=== PATIENT | male | born 1965 | race Caucasian/White ===

== ENCOUNTER 2021-11-02 12:45 | Inpatient (IN) | payer OTHER ==
[~2021-11-02] VITALS: Ht 188 cm; Wt 144.0 kg
[2021-11-02 13:05] LABS: Calcium, Ionized (POC) 1.18 mmol/L (1.10-1.46); Chloride (POC) 94 mmol/L (98-108); Creatinine (POC) 1.7 mg/dL (0.8-1.3); Glucose (ISTAT POC) 151 mg/dL (70-99); Hemoglobin (POC) 13.6 g/dL (13.5-17.5); Potassium (POC) 4.7 mmol/L (3.5-5.5); Sodium (POC) 135 mmol/L (135-148); Total CO2 (POC) 34 mmol/L (21-32)
[2021-11-02 13:15] LABS: BASOPHILS ABSOLUTE AUTO 0.07 K/mm3 (0.00-0.23); BASOPHILS PERCENT AUTO 1 % (0-2); EOSINOPHILS PERCENT AUTO 0 % (0-6); Hematocrit 43.4 % (37.0-53.0); Hemoglobin 13.3 g/dL (13.5-17.5); IMMATURE GRAN ABSOLUTE AUTO 0.12 K/mm3 (0.00-0.10); IMMATURE GRAN PERCENT AUTO 1 % (0-1); LYMPHOCYTES ABSOLUTE AUTO 2.29 K/mm3 (0.84-5.20); LYMPHOCYTES PERCENT AUTO 18 % (21-46); MONOCYTES ABSOLUTE AUTO 1.15 K/mm3 (0.16-1.47); MONOCYTES PERCENT AUTO 9 % (4-13); Mean Corpuscular HGB 26.5 pg (26.0-34.0); Mean Corpuscular HGB Conc 30.6 g/dL (31.5-36.5); Mean Corpuscular Volume 87 fL (80-100); Mean Platelet Volume 9.3 fL (9.1-12.4); NEUTROPHILS ABSOLUTE AUTO 9.35 K/mm3 (1.96-9.15); NEUTROPHILS PERCENT AUTO 72 % (41-73); Platelet Count 187 K/mm3 (150-400); RDW Coefficient Variation 14.7 % (11.7-14.2); RDW Standard Deviation 46.8 fL (35.1-46.3); Red Blood Cell Count 5.02 M/mm3 (4.30-5.90); White Blood Cell Count 12.98 K/mm3 (4.00-11.30)
[2021-11-02 13:23] LABS: Bicarbonate Venous 26.5 mmol/L (24.0-30.0); PCO2 Venous 85.1 mmHg (38-42); PO2 Venous 73.9 mmHg (38-42)
[2021-11-02 13:48] LABS: International Normalized Ratio 1.02; Prothrombin Time Results 10.7 Sec (9.7-11.5)
[2021-11-02 14:06] LABS: Source, Urine Straight Cath
[2021-11-02 14:11] LABS: Appearance, Urine Clear (Clear); Bilirubin, Urine Neg (Neg); Blood, Urine 3+ (Neg); Color, Urine Amber (P-Yellow); Glucose Qualitative, Urine Neg (Neg); Ketones, Urine Neg (Neg); Leukocyte Esterase, Urine Neg (Neg); Nitrite, Urine Neg (Neg); Protein, Urine 3+ (Neg); Specific Gravity, Urine 1.025 (1.003-1.022); Urobilinogen, Urine NORM (Normal)
[2021-11-02 14:28] LABS: Bacteria Mod /hpf; Mucus Light (0-Heavy); Squamous Epithelial Cells Few /hpf (Few)
[2021-11-02 14:29] LABS: Albumin, Blood 3.1 g/dL (3.4-5.0); Albumin/Globulin Ratio 0.6 (0.8-1.8); Bilirubin, Total 0.5 mg/dL (0.1-1.0); Bun/Creatinine Ratio 20.5 (12.0-20.0); Calcium, Blood 8.9 mg/dL (8.5-10.1); Creatinine, Blood 1.66 mg/dL (0.60-1.20); Globulin, Blood 5.6 g/dL (2.2-4.0); Potassium, Blood 4.4 mmol/L (3.5-5.5); Thyroid Stimulating Hormone 1.01 uIU/mL (0.360-4.800); Total Protein, Blood 8.7 g/dL (6.4-8.2)
[2021-11-02 14:33] LABS: U Amphetamine Screen DETECTED; U Barbituate Screen Not Detected; U Benzodiazapine Screen Not Detected; U Cannabinoids Screen DETECTED; U Cocaine Screen Not Detected; U Methadone Screen Not Detected; U Methamphetamine Screen DETECTED; U Opiates Screen Not Detected; U Phencyclidine Screen Not Detected
[2021-11-02 14:34] LABS: U Buprenorphine Screen Not Detected; U Oxycodone Screen Not Detected; U Propoxyphene Screen Not Detected
[2021-11-02 14:56] LABS: Influenza A, PCR NEGATIVE (NEGATIVE); Influenza B, PCR NEGATIVE (NEGATIVE); Resp Syncytial Virus, PCR NEGATIVE (NEGATIVE); SARS-Cov-2 (COVID-19) PCR, MMC NEGATIVE (NEGATIVE)
--- NOTE | 2021-11-02 19:00 | NUR ---
ASSUMED CARE ASSUMED CARE AT 1900. PT INTUBATED AND SEDATED. PROPOFOL GTT AT 20MCG/KG/MIN. MONITOR SHOWS SR, RATE 90S, VSS. OG CLAMPED. AMIN PATEND/DRAINING, YELLOW CLOUDY W/ SEDIMENT. R IJ CENTRAL LINE NOTED.
--- NOTE | 2021-11-02 19:42 | NUR ---
1600 ADMIT TO ICU PATIENT WAS INTUBATED AND SEDATED ON THE VENTILATOR. HE HAS 3 PIV UPON ARRIVAL WITH 10MCG OF PROPOFOL GOING INTO HIS RIGHT HAND. ANTIBIOTICS STARTED. PT HAS AN OG IN PLACE AND AMIN CATH [address] FROM ER. URINE OUTPUT ONLY 200 CC OUT FROM [id number] IN THE ICU. 3 STAFF MEMBERS SCRUBBED PT HEAD TO TOE. HE HAD MAGGOTS TO LEFT GAMBLE. HIS WOUNDS ARE EXTENSIVE ON BILAT. LE UPON ARRIVAL. HE ALSO HAS MOISTURE DAMAGE TO PANIS AND RIGHT AND LEFT GROIN. PICTURES TAKEN, SEE CHART. NO FAMILY ARRIVED OR CALLED FOR PATIENT SO STILL NO HISTORY TO NOTE OF. DR FAUST PLACED A CENTRAL LINE TO RIGHT IJ, CHEST XRAY DONE AND SHE GAVE THE OK TO USE THE LINE. LABS SENT OFF THE CENTRAL LINE AND TROPONIN I HIGH WENT UP FROM PREVIOUS DRAW HOWEVER HIS LACTIC ACID LEVEL WHEN DOWN A LITTLE. REPORT GIVEN OFF TO NEXT SHIFT TO RESUME CARE.
[2021-11-03 02:21] LABS: BASOPHILS ABSOLUTE AUTO 0.02 K/mm3 (0.00-0.23); BASOPHILS PERCENT AUTO 0 % (0-2); EOSINOPHILS ABSOLUTE AUTO 0.06 K/mm3 (0.00-0.68); EOSINOPHILS PERCENT AUTO 1 % (0-6); Hematocrit 34.9 % (37.0-53.0); Hemoglobin 11.2 g/dL (13.5-17.5); IMMATURE GRAN ABSOLUTE AUTO 0.05 K/mm3 (0.00-0.10); IMMATURE GRAN PERCENT AUTO 1 % (0-1); LYMPHOCYTES ABSOLUTE AUTO 1.73 K/mm3 (0.84-5.20); LYMPHOCYTES PERCENT AUTO 19 % (21-46); MONOCYTES PERCENT AUTO 9 % (4-13); Mean Corpuscular HGB 26.6 pg (26.0-34.0); Mean Corpuscular HGB Conc 32.1 g/dL (31.5-36.5); Mean Corpuscular Volume 83 fL (80-100); Mean Platelet Volume 9.8 fL (9.1-12.4); NEUTROPHILS ABSOLUTE AUTO 6.67 K/mm3 (1.96-9.15); NEUTROPHILS PERCENT AUTO 72 % (41-73); Platelet Count 130 K/mm3 (150-400); RDW Coefficient Variation 14.6 % (11.7-14.2); RDW Standard Deviation 43.8 fL (35.1-46.3); Red Blood Cell Count 4.21 M/mm3 (4.30-5.90); White Blood Cell Count 9.33 K/mm3 (4.00-11.30)
[2021-11-03 02:51] LABS: Albumin, Blood 2.4 g/dL (3.4-5.0); Albumin/Globulin Ratio 0.5 (0.8-1.8); Bilirubin, Total 0.6 mg/dL (0.1-1.0); Bun/Creatinine Ratio 22.8 (12.0-20.0); Calcium, Blood 7.7 mg/dL (8.5-10.1); Creatinine, Blood 1.45 mg/dL (0.60-1.20); Globulin, Blood 4.4 g/dL (2.2-4.0); Potassium, Blood 3.7 mmol/L (3.5-5.5); Total Protein, Blood 6.8 g/dL (6.4-8.2)
--- NOTE | 2021-11-03 05:56 | NUR ---
SHIFT SUMMARY NO ACUTE CHANGES DURING NOC. REMAINS INTUBATED- AC/VC 16/500/5/40%. RR 16-20s. SX'd MODERATE AMOUNTS OF WHITE SPUTUM. COPIOUS ORAL SECRETIONS AT TIMES. SEDATED WITH PROPOFOL BETWEEN 10-30MCG/KG/MIN- NOW INFUSING AT 30MCG/KG/MIN. SEDATION VACATION DONE THIS AM- PT AWAKE, FOLLOWING COMMANDS, ATTEMPTING TO TALK AND GESTURING WITH HANDS. SEDATION RESTARTED AND WEANING TRIAL STOPPED D/T INCREASED AGITATION. VSS. AFEBRILE. OG TO LIS WITH SMALL AMOUNT OF LIGHT BROWN DRAINAGE. AMIN PATENT AND DRAINING TO GRAVY WITH SEDIMENT NOTED. RIJ WITH ONLY TWO LUMENS PATENT AT THIS TIME- BROWN PORT AND BLUE PORT NOT FLUSHING. BLEs WITH PETROLEUM DRSGS AND KERLEX IN PLACE D/T PRESENCE OF MAGGOTS. WILL REPORT TO ONCOMING RN WHEN AVAILABLE.
--- NOTE | 2021-11-03 10:21 | NUR ---
AM NOTE: ASSUMED CARE OF PATIENT AT 0700. IN ROOM AT 0830 TO COMPELTE MORNING ASSESSMENT. PT IS INTUBATED AND SEDATED WITH PROPOFOL RUNNING AT 30 MCG/KG/MIN AND VENT SETTINGS AT AC/VC 16/500/40/5.0. PT HAS RHONCI NOTED IN THE DORIS, WITH COARSE SOUNDS NOTED IN THE BILATERAL MIDDLE LOBES, AND DIMINISHED LUNG SOUNDS IN THE BILATERAL BASES OF THE LUNGS. O2 LEVELS MAINTAINING 95<. THE PT RESPONDS TO PAIN STIMULI. THE PT IS NOT ABLE TO FOLLOW COMMANDS R/T SEDATION. THE PT IS IN SR WITH HR IN THE 80'S AND SBP MAINTAINING IN THE 110'S. CONTINUOUS CARIDAC MONITOR IN PLACE. THE PT HAS DARK, CLOUDY, RED-TINGED URINE IN THE COLLECTION BAG. THERE IS A 12 SOUTH [place] INDWELLING CATHETER IN PLACE, PATENT AND DRAINING TO GRAVITY. THE PT HAS HYPOACTIVE BOWEL WOUNDS AND HAS AN OGT IN PLACE, PATENT AND ON INTERMEDIATE SUCTIONING; THERE IS A SMALL AMOUNT OG YELLOW DRAINAGE IN THE SUCTIONING CANISTER. THE PT HAS NO TUBE FEEDING ORDERS AT THIS TIME, BUT DID HAVE A DIETARY CONSULT ORDERED THIS MORNING. THE PT HAS DRY, FLAKEY SKIN ON HIS UPPER AND LWOER EXTREMITIES WITH CELLULITUS NOTIED ON THE BLE. BANDAGES ARE IN PLACE IN THE BLE AND ARE C/D/I. SWELLING IN THE FINGERS AND TOES ARE NOTED; THE PT HAD A FEW RINGS ON THE FINGERS. TWO RINGS WERE REMOVED, BUT ONE RING WAS NOT ABLE TO BE REMOVED ON THE RING FINGER OF THE LEFT HAND. THERE IS A TOE RING ON THE RIGHT FOOT THAT WAS NOT BALE TO BE REMOVED R/T THE SWELLING. PT HAS A RIJ ACCESS AND TWO PIV'S IN THE LFA. ALL LINES FLUSHED WITH 10 CC OF SALINE. DBA MANAGER AT BEDSIDE @ 0922. WILL CONTINUE TO MONITOR PT THROGHOUT THE SHIFT.
--- NOTE | 2021-11-03 15:28 | NUR ---
AFTERNOON UPDATE: STARTING THIS SHIFT THE PT HAD HEPARIN RUNNING AT 17 UNITS/KG/HR. LAB ADJUSTED DOSING THIS AFTERNOON, AND THE HEPARIN WAS TITRATED UP TO 20 UNITS/KG/HR AT 1220. DIETARY CONSULT COMPLETED THIS MORNING WITH NEW TUBE FEEDING ORDERS. TUBE FEEDINGS STARTED AT 1445 AND IS CURRENTLY GOING AT 30 MLS/HR WITH A TARGET GOAL RATE OF 50 MLS/HR; ORDERS TO INCREASE FEEDING BY 10 MLS EVERY EIGHT HOURS. TUBE FEEDING PUMP IS SET TO ALARM FOR THE FIRST INCREASE AFTER THE INITAL EIGHT HOURS. THE PT'S DAUGHTER, REBA, CALLED AND WAS GIVEN AN UPDATE ABOUT NUTRITION INTERVENTIONS INITIATED THIS AFTERNOON. THE PT'S , JARETH, HAS REQUESTED THAT THE DAUGHTER, REBA BE THE PRIMARY CONTACT IN REGARDS TO UPDATES. THE DAUGHTERS AND WIFES NUMBER UPDATED IN THE CHART. ALL THE FAMILY'S QUESTIONS ANSWERED AT THIS TIME. WILL CONTINUE TO MONITOR THROUGHOUT THE SHIFT.
--- NOTE | 2021-11-03 18:40 | NUR ---
SHIFT SUMMARY; PT REMAINS STABLE THROUGHOUT THE SHIFT; CONTINUES TO BE INTUBATED AND SEDATED WITH PROPOFOL RUNNING AT 30 MCG/KG/MIN AND VENT SETTINGS AC/VC 16/500/40/5.0. PT IS RESPONDING TO PAIN STIMULI AT THIS TIME. THE PT HAS COARSE LUNG SOUNDS IN THE UPPER AND MIDDLE LOBES BILATERALLY AND IS DIMINISHED IN THE BASES BILATERALLY. THE PT WAS DEEP SUCTIONED A FEW TIMES TODAY WITH SMALL AMOUNTS OF WHITE SPUTUM REMOVED. THE PT MAINTAINED O2 LEVELS 92<. PT HR IN THE THE 80'S WITH SBP IN THE 120'S. S1 AND S2 SOUNDS HEARD UPON ASCULTATION. PT HAS A 12 FR INDWELLING CATHETER IN PLACE, PATENT AND DRAINING TO GRAVITY; URINE OUTPUT IS A DARK HAYES COLOR, CLOUDY, AND HAS RED SEDIMENT PARTICLES NOTED. THE PT HAD 800 ML OUTPUT THIS SHIFT. THE PT HAS AN OGT IN PLACE THAT IS PATENT. TUBE FEEDINGS WERE INITIATED THIS AFTERNOON STARTING AT 30 MLS/ HR WITH A GOAL OF 50 MLS/HR. THE PT HAS HYPOACTIVE BS AND A FIRM ABD UPON PALPATION. THE PT HAD NO BM THIS SHIFT. THE PT'S SKIN IS DRY AND FLAKEY ON ALL EXTREMITIES. THE PT'S SKIN IS WARM TO TOUCH AND CAP REFIL REMAINS < 3 SECONDS. THE PT BLE ARE WRAPPED IN GAUZE AND THE DRESSSING REMAINED D/C/I THIS SHIFT. THE PT HEPARIN TITRATED UP TO 22 UNITS/KG/HR AT 1835. WILL CONTINUE TO MONITOR UNTIL ONCOMING RN.
--- NOTE | 2021-11-03 21:34 | NUR ---
ASSUMPTION OF CARE ASSUMED CARE FOR PT. AT 1900. UPON ENTERING ROOM I NOTICED ONE OF THE PT.'S FINGERS WAS TURNING BLUE. UPON FURTHER ASSESSMENT I SAW A RING CUTTING OFF CIRCULATION ON LEFT HAND. RING WAS REMOVED AND PT. WAS IN NO OTHER DISTRESS. ASSESSMENT FINDINGS CHARTED.
[2021-11-04 01:24] LABS: BASOPHILS ABSOLUTE AUTO 0.03 K/mm3 (0.00-0.23); BASOPHILS PERCENT AUTO 0 % (0-2); EOSINOPHILS ABSOLUTE AUTO 0.25 K/mm3 (0.00-0.68); EOSINOPHILS PERCENT AUTO 3 % (0-6); Hematocrit 34.3 % (37.0-53.0); Hemoglobin 11.1 g/dL (13.5-17.5); IMMATURE GRAN ABSOLUTE AUTO 0.05 K/mm3 (0.00-0.10); IMMATURE GRAN PERCENT AUTO 1 % (0-1); LYMPHOCYTES ABSOLUTE AUTO 1.46 K/mm3 (0.84-5.20); LYMPHOCYTES PERCENT AUTO 17 % (21-46); MONOCYTES ABSOLUTE AUTO 0.56 K/mm3 (0.16-1.47); MONOCYTES PERCENT AUTO 7 % (4-13); Mean Corpuscular HGB 26.7 pg (26.0-34.0); Mean Corpuscular HGB Conc 32.4 g/dL (31.5-36.5); Mean Corpuscular Volume 83 fL (80-100); Mean Platelet Volume 9.7 fL (9.1-12.4); NEUTROPHILS ABSOLUTE AUTO 6.26 K/mm3 (1.96-9.15); NEUTROPHILS PERCENT AUTO 73 % (41-73); Platelet Count 129 K/mm3 (150-400); RDW Coefficient Variation 14.7 % (11.7-14.2); RDW Standard Deviation 43.9 fL (35.1-46.3); Red Blood Cell Count 4.15 M/mm3 (4.30-5.90); White Blood Cell Count 8.61 K/mm3 (4.00-11.30)
[2021-11-04 01:40] LABS: Albumin, Blood 2.3 g/dL (3.4-5.0); Albumin/Globulin Ratio 0.5 (0.8-1.8); Bilirubin, Total 0.4 mg/dL (0.1-1.0); Bun/Creatinine Ratio 25.6 (12.0-20.0); Calcium, Blood 7.8 mg/dL (8.5-10.1); Creatinine, Blood 1.25 mg/dL (0.60-1.20); Globulin, Blood 4.5 g/dL (2.2-4.0); Magnesium, Blood 2.3 mg/dL (1.6-2.4); Phosphorus, Blood 2.8 mg/dL (2.5-4.9); Potassium, Blood 3.4 mmol/L (3.5-5.5); Total Protein, Blood 6.8 g/dL (6.4-8.2)
--- NOTE | 2021-11-04 06:08 | NUR ---
SHIFT SUMMARY: PT. REMAINED STABLE OVERNIGHT, BP, HR, AND O2 WERE ALL WNL. PT. RECIEVED BED BATH AND LINEN CHANGE. AMIN STILL PATENT AND DRAINING, 600ML OF UOP OVERNIGHT. PT. HAS COPIOUS ORAL AND ETT SECRETIONS THAT WERE SUCTIONED HOURLY. PT. RESTING COMFORTABLY AT THIS TIME.
--- NOTE | 2021-11-04 08:55 | NUR ---
AM NOTE: ASSUMED CARE OF PT AT 0700. THE PT IS INTUBATED AND SEDATED AT THIS TIME WITH VENT SETTINGS AT AC/VC 16/500/40/5.0 AND PROPOFOL RUNNING AT 35 MCG/KG/MIN. DR FAUST AT [facility] AT 0700 AND DISCUSSED THE GOAL FOR A SEDATION VACATION AND SPONTANEOUS BREATHING TRIAL FOR THIS SHIFT. THE PROVIDER ORDERED PRECEDEX AND THAT WAS INIATED AT 0720 AT 0.2 MCG/KG/HR AND PROPOFOL WAS TITRATED DOWN TO STANDBY (SEE FLOWSHEET). THE SPONTANEOUS BREATHING TRIAL WAS INITIATED AT 0740 BY KIRSTEN DERAS. THE PT WAS SLIGHTLY AGGITATED AND PRECEDEX WAS TITRATED UP TO 0.7 MCG/KG/HR TO HELP KEEP THE PT CALM DURING HIS SPONTANEOUS BREATHING TRIAL. THE PT IS MAINTAINING O2 LEVELS 94<, RR AT 20-30, AND TIDAL VOLUMES 300-500. THE PT IS ABLE TO FOLLOW COMMANDS, OPENS EYES TO VERBAL STUMULI, AND IS ABLE TO NOD HEAD YES/NO TO SIMPLE QUESTIONS. THE PT HAS CRACKLES NOTED IN UPPER LOBES BILATERALLY AND DIMINSIHED IN THE BASES; THE LEFT LOWER LUNG SOUNDS MORE DIMINSHED WHEN COMPARED TO THE RIGHT LOWER LOBES. THE PT HAS S1/S2 MUFFLED HEART SOUNDS NOTED; HR IN THE 70-80'S WITH SCP IN THE 120'S. THE PT HAS AN INDWELLING CATHETER THAT IS PATENT AND DRAINING TO GRAVITY WITH HAYES, CLOUDY URINE. THERE IS AN OGT PATENT AND WITH CONTINUOUS TUBE FEEDINGS TRANSFUSING AT 50 MLS/HR. THE PT HAS WARM EXTRMITIES AND CAP REFIL REMAINS < 3 SECONDS. THIS MORNING THE HEPARIN WAS DISCONTINUED AND NOW THE PT IS RECIEVING SUB Q LOVENOX INJECTIONS. POTASSIUM LEVELS THIS MORNING WERE 3.4, SO A POTASSIUM RIDER WAS ORDERED BY THE PROVIDER AND STARTED THIS MORNING; LASIX WAS ORDERED AND WILL BE ADMINISTERED ONCE THE POTASSIUM HAS COMPLETED. WILL CONTINUE TO MONITOR THROUGHOUT THE SHIFT.
--- NOTE | 2021-11-04 11:30 | NUR ---
Assumed care of patient. He has 8.0 ET and is 26 cm at lips, he remains on Spon. mode with settings ogPS 12FiO2 40 and Peep of 5 with sats >90%. He has NG with VHP at 50 ml/hr and 30 ml water flushes Q4. He has RIJ CL infusing Precedex at 0.7 mcg/kg/hr. 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 He is alert and is able to communicate his needs when asked simple questions. Dr Blanco has been by to assess. Propofol is on standby while on Spon mode.
--- NOTE | 2021-11-04 16:00 | NUR ---
WOUND CARE TO BILATERAL LOWER EXTREMETIES. WHEN DRESSING REMOVED FROM LEFT LOWER LEG NUMEROUS MAGGOTS SEEN WITHIN WOUND AND ON DRESSING. ENTIRE LEFT LOWER LEG CLEANSED, LOTION APPLIED TO DRY SKIN, AND PETROLEUM DRESSING APPLIED- LLE WRAPPED WITH ARLENE WRAP, NEW PICTURES TAKEN. RIGHT LOWER LEG DRESSING REMOVED, LEG HAD NO EVIDENCE OF WOUNDS, LEG CLEANSED AND REWRAPPED.
--- NOTE | 2021-11-04 17:50 | NUR ---
SHIFT SUMMARY: PT REMAINS SEDATED AND INTUBATED WITH PROPOFOL RUNNING AT 40 MCG/KG/MIN WITH VENT SETTINGS AC/VC 16/500/65/10.0. THE PT WAS ON A SPONTANEOUS BREATHING TRIAL FROM 0730 TO 1300. THE PT WAS FATIGUED TOWARDS THE END OF THE TRIAL AND NO SET DAY FOR EXTUBATION AT THIS TIME. THE PT CONTINUES TO RESPOND TO PAIN STIMULI WHILE SEDATED. THE PT HAS O2 LEVELS MAINTAINING 92<. THE PT'S HR IS MAINTAINING IN THE 70'S AND SBP IN THE 100'S. TUBE FEEDING WAS TITRATED UP TO THE GOAL FEEDING RATE OF 50 MLS/HR. TUBE FEEDING WAS REPLACED THIS SHIFT. THE PT HAS AN OGT IN PLACE AND PATENT. THE PT'S INDWELLING CATHETER HAD TO BE REPLACED DUE TO BLOCKAGE OF URINE DRAINAGE. WOUND CARE WAS CONDUCTED TODAY BY DANIELITO FERNANDEZ, AND MANY MAGGOTS WERE REMOVED FROM THE LEFT LEG. BOTH LEGS WERE CLEANED AND REDRESSED THIS SHIFT. THE HEPARIN HAS BEEN DISCONTINUED AND PRECEDEX IS ON STAND-BY. WILL CONTINUE TO MONITOR UNTIL ONCOMING RN SHIFT CHANGE.
[2021-11-05 03:51] LABS: BASOPHILS ABSOLUTE AUTO 0.02 K/mm3 (0.00-0.23); BASOPHILS PERCENT AUTO 0 % (0-2); EOSINOPHILS ABSOLUTE AUTO 0.25 K/mm3 (0.00-0.68); EOSINOPHILS PERCENT AUTO 3 % (0-6); Hematocrit 34.7 % (37.0-53.0); Hemoglobin 11.1 g/dL (13.5-17.5); IMMATURE GRAN ABSOLUTE AUTO 0.05 K/mm3 (0.00-0.10); IMMATURE GRAN PERCENT AUTO 1 % (0-1); LYMPHOCYTES ABSOLUTE AUTO 0.95 K/mm3 (0.84-5.20); LYMPHOCYTES PERCENT AUTO 13 % (21-46); MONOCYTES ABSOLUTE AUTO 0.58 K/mm3 (0.16-1.47); MONOCYTES PERCENT AUTO 8 % (4-13); Mean Corpuscular HGB 26.6 pg (26.0-34.0); Mean Corpuscular Volume 83 fL (80-100); Mean Platelet Volume 10.2 fL (9.1-12.4); NEUTROPHILS ABSOLUTE AUTO 5.48 K/mm3 (1.96-9.15); NEUTROPHILS PERCENT AUTO 75 % (41-73); Platelet Count 146 K/mm3 (150-400); RDW Coefficient Variation 15.2 % (11.7-14.2); RDW Standard Deviation 45.9 fL (35.1-46.3); Red Blood Cell Count 4.17 M/mm3 (4.30-5.90); White Blood Cell Count 7.33 K/mm3 (4.00-11.30)
[2021-11-05 04:09] LABS: Magnesium, Blood 2.6 mg/dL (1.6-2.4)
[2021-11-05 04:10] LABS: Bun/Creatinine Ratio 29.2 (12.0-20.0); Calcium, Blood 7.8 mg/dL (8.5-10.1); Creatinine, Blood 1.54 mg/dL (0.60-1.20); Phosphorus, Blood 3.5 mg/dL (2.5-4.9); Potassium, Blood 3.7 mmol/L (3.5-5.5)
--- NOTE | 2021-11-05 06:17 | NUR ---
SHIFT SUMMARY: PT. REMAINED STABLE OVERNIGHT. PT. WAS FIGHTING VENTILATOR SO PROPOFOL WAS INCREASED. TF RUNNING AT GOAL WITH RESIDUALS UNDER 50MLS, AMIN STILL PATENT AND DRAINING URINE WITH RED SEDIMENT, 550 OF URINARY OUTPUT TONIGHT. VS WERE ALL WNL OVERNIGHT AND PT. GOT A BED BATH WITH A LINEN CHANGE. PT. STILL PRODUCING COPIOUS SECRETIONS THAT ARE CREAMY WHITE IN COLOR. PT. RESTING COMFORTABLY AT THIS TIME.
--- NOTE | 2021-11-05 09:14 | NUR ---
AM NOTE: ASSSUMED CARE OF PT AT 0700. PT IS SEDATED AND INTUBATED WITH PROPOFOL RUNNING AT 45 MCG/KG/MIN, AND VENT SETTINGS 16/500/10/65%. THE PT HAS EXPIRATORY WHEEZES NOTED IN THE UPPER RIGHT LOBES, AND DIMINISHED LUNG SOUNDS BILAT LOWER LOBES; 02 LEVELS MAINTAINING 94<. MUFFLED S1/S2 HEART SOUNDS ASCULTATED. DURING ORAL CARE THIS RN OBSERVED FOAMING ORAL SECRETIONS; PT SEEMS TO PRODUCE A SIGNIFICANT AMOUNT OF ORAL SECRETIONS. PT IS CURRENTLY IN SR WITH HR IN THE 80'S AND SBP IN THE 120'S. THE PT HAS HYPOACTIVE BOWEL SOUNDS; OGT IS PRESENT, PATENT AND INFUSING TUBE FEEDINGS AT THE GOAL RATE OF 50 MLS/HR. THE PT'S INDWELLING CATHETER IS IN PLACE, PATENT AND DRAINING TO GRAVITY. DURING LIVAN CARE, THIS RN OBSEREVED WHITE, THICK DRAINAGE FROM THE URETHRAL OPENING. THE TIP OF THE PENIS LOOKS REDDENED WELL. WILL CONTINUE TO MONITOR FOR WORSENING SYMPTOMS. THE PT HAS WARM EXTREMITIES WITH CAP REFIL REMAINING < 3 SECONDS. WILL CONTINUE TO MONITOR THROUGHOUT THE SHIFT.
--- NOTE | 2021-11-05 13:33 | NUR ---
Pt resting in bed with his eyes closed and is intubated. No S/S of distress at this time. Discussed case with Primary RN [place]air and reviewed plan of care. Family may benefit from advanced care planning. Pt's code status is DNR. Pt requiring more ventilator support today. Attempted to contact SO. Left message on voicemail with request for a return phone call. Palliative Care will remain available for supportive and therapeutic visits.
--- NOTE | 2021-11-05 16:08 | NUR ---
AFTERNOON UPDATE: PT'S JUNG WAS SHAVED THIS SHIFT, SO THAT THE ETT SECUREMENT DEVICE COULD BE REPLACED. THE BITE BLOCK WAS REMOVED BY KENYATTA DERAS AND HE PLACED THE NEW SECUREMENT DEVICE. THE PT'S FACED WAS WASHED. THE PT ALSO HAD TWO RINGS REMOVED THIS SHIFT; ONE RING WAS ON THE PINKY OF THE R. HAND AND WAS REMOVED USING SOME LUBE, AND THE RING ON THE R. FOOT WAS REMOVED USING A RING CUTTER. ALL RINGS PLACED IN THE PT'S LOCK BOX. NEW TUBE FEEDING AND TUBING WAS HUNG TODAY. THE PT'S STATUS REMAINS UNCHANGED FROM THIS MORNING. DARRIAN BOWEL PROTOCOL ORDERED BY TRAFFIC CONTROL SUPERVISORGRACIE. PROTOCOL WILL BEGIN THIS PM. WILL CONTINUE TO MONITOR.
--- NOTE | 2021-11-05 18:36 | NUR ---
SHIFT SUMMARY: PT REMAINS SEDATED AND INTUBATED WITH PROPOFOL RUNNING AT 45 MCG/KG/MIN, AND VENT SETTINGS 16/500/12/60%. ORDERS ARE PUT BY DR. SENIOR FOR THE PEEP TO REMAIN AT 12 UNTIL ORDERS DISCONTINUED. THE PT HAS NS RUNNING AT 100 MLS/HR TO HELP BRING DOWN CREATINE LEVELS IN PREPARATION FOR THE PT TO UNDERGO A HEAD CT. THE PT HAS NOTED URETHRAL WHITE, THICK DRAINAGE AND REDDNESS AROUND THE TIP OF THE PENIS. THE PT HAD THE ETT SECUREMENT DEVICE REPLACED TODAY AND HIS JUNG WAS SHAVED IN PREPARATION FOR THIS. THIS RN COMPLETED A CENTRAL LINE DRESSING THIS SHIFT. THE PT REMAINS IN SR WITH HR IN THE 70-80'S WITH SBP IN THE 120-130'S. O2 LEVELS HAVE MAINTAINED 94<; DEEP SUCTIONING PERFORMED ON PT A FEW TIMES TODAY WITH MODERATE, WHITE SPUTUM. LUNG SOUNDS CONTINUE TO IMPROVE, BUT DIMINISHED IN THE BASES AND EXPIRATORY WHEEZES IN THE UPPER BASES BILATERALLY. THE PT HAD GOOD URINE OUTPUT THIS SHIFT AND THE INDWELLING CATHETER IS PATENT AND DRAINING TO GRAVIY. THE PT WAS GIVEN A BED BATH TODAY AND LINEN CHANGES WERE COMPLETED. WILL CONTINUE TO MONITOR UNTIL ONCOMING SHIFT NURSE.
--- NOTE | 2021-11-05 21:41 | NUR ---
SHIFT ASSESSMENT ASSUMED CARE OF PT @ 1900. PT INTUBATED AND SEDATED ON PROPOFOL @ 45MCG/KG/MIN, VENT SETTINGS AC: 16/500/12/60% c SATS >95%. MODERATE AMNT OF WHITE, THICK SECRETIONS SUCTIONED VIA ETT. TF INFUSING @ GOAL, BOWEL CARE MEDS STARTED TONIGHT. NO BM TODAY. AMIN CATH PATENT, DRAINING HAYES URINE WITH RED SEDIMENT. DRESSINGS TO BOTH LE CHANGED, NO MAGGOTS FOUND DURING CHANGE, PETROLEUM DRESSING AND ARLENE WRAP APPLIED.
[2021-11-06 03:53] LABS: BASOPHILS ABSOLUTE AUTO 0.02 K/mm3 (0.00-0.23); BASOPHILS PERCENT AUTO 0 % (0-2); EOSINOPHILS ABSOLUTE AUTO 0.28 K/mm3 (0.00-0.68); EOSINOPHILS PERCENT AUTO 4 % (0-6); Hematocrit 33.4 % (37.0-53.0); Hemoglobin 10.7 g/dL (13.5-17.5); IMMATURE GRAN ABSOLUTE AUTO 0.02 K/mm3 (0.00-0.10); IMMATURE GRAN PERCENT AUTO 0 % (0-1); LYMPHOCYTES ABSOLUTE AUTO 0.93 K/mm3 (0.84-5.20); LYMPHOCYTES PERCENT AUTO 15 % (21-46); MONOCYTES ABSOLUTE AUTO 0.54 K/mm3 (0.16-1.47); MONOCYTES PERCENT AUTO 8 % (4-13); Mean Corpuscular HGB 26.8 pg (26.0-34.0); Mean Corpuscular Volume 84 fL (80-100); Mean Platelet Volume 10.1 fL (9.1-12.4); NEUTROPHILS ABSOLUTE AUTO 4.62 K/mm3 (1.96-9.15); NEUTROPHILS PERCENT AUTO 72 % (41-73); Platelet Count 143 K/mm3 (150-400); RDW Coefficient Variation 15.6 % (11.7-14.2); RDW Standard Deviation 46.9 fL (35.1-46.3); Red Blood Cell Count 3.99 M/mm3 (4.30-5.90); White Blood Cell Count 6.41 K/mm3 (4.00-11.30)
[2021-11-06 04:13] LABS: Albumin, Blood 2.1 g/dL (3.4-5.0); Anion Gap 5 mmol/L (6-16); Blood Urea Nitrogen 36 mg/dL (8-24); CO2, Blood 30 mmol/L (21-32); Calcium, Blood 7.8 mg/dL (8.5-10.1); Chloride, Blood 106 mmol/L (98-108); Creatinine, Blood 1.16 mg/dL (0.60-1.20); Glomerular Filtration Rate 73 (60-); Glucose, Blood 110 mg/dL (70-99); Phosphorus, Blood 3.4 mg/dL (2.5-4.9); Potassium, Blood 3.7 mmol/L (3.5-5.5); Sodium, Blood 141 mmol/L (136-145)
--- NOTE | 2021-11-06 06:21 | NUR ---
SHIFT SUMMARY PT REMAINS INTUBATED AND SEDATED, PROPOFOL REMAINS @ 45MCG'S. FIO2 TITRATED DOWN TO 40%, PT TOLERATING WELL, SATS >90%. ETT CUFF LEAK SEEMED TO BE CONTROLLED AT START OF SHIFT BUT AROUND 0400 LEAK WORSENING, UNABLE TO POSITION TO ELIMINATE LEAK, HOSPITALIST NOTIFIED, ADDRESSING SHORTLY. PT ABLE TO SQUEEZE BOTH HANDS, OPEN EYES AND TRACK NURSE DURING SEDATION VACATION BUT BECAME AGITATED RATHER QUICKLY. AMIN CATH DRAINING GREENISH URINE. TF CONTINUES @ GOAL, NO BM THIS SHIFT. NO OTHER ACUTE CHANGES.
--- NOTE | 2021-11-06 06:42 | NUR ---
HOLDING OFF ON ETT EXCHANGE AT THIS TIME, HOSPITALIST AND RT AT BEDSIDE TO DISCUSS. WILL WATCH CLOSELY.
--- NOTE | 2021-11-06 13:15 | NUR ---
REASSESSMENT PT REMAINS VENTED AND SEDATED. SEDATION TURNED OFF FOR 20 MINTUES THIS MORNING AND PT WAS ABLE TO OPEN HIS EYES, FOLLOW COMMANDS AND MOVE ALL EXTREMITIES. HIS LUNGS ARE CLEAR, LOTS OF ORAL SECRETIONS. SR, BP STABLE. TOLERATING TUBE FEEDS. BOWEL CARE GIVEN AND HARD STOOL FELT HIGH IN RECTAL VAULT WHEN SUPPOSITORY INSERTED. AMIN DRAINING CLEAR YELLOW/GREEN URINE. PT TO CT SCAN CURRENTLY WITH CEMENT MASON APPRENTICE AND RT.
--- NOTE | 2021-11-06 14:26 | NUR ---
DR. ESTRADA, RADIOLOGIST, CALLED AND INFORMED THAT PT HAS PE IN R LUNG, PARTIALLY OCCLUSIVE. DR. SENIOR INFORMED AND ORDERED LOVENOX, 1MG/KG BID STARTING NOW. ORDER PLACED AND PHARMACY NOTIFIED.
--- NOTE | 2021-11-06 17:19 | NUR ---
TUBE EXCHANGE PT HAS BEEN HAVING CUFF LEAKS SINCE LAST NIGHT. PT HAD MINIMAL LEAKS THROUGHOUT THIS SHIFT AFTER RT PLACED TAPE OVER THE VALVE WHERE THE BALLOON IS INFLATED, BUT THIS EVENING PT STARTED HAVING SIGNIFICANT LEAKS AGAIN WHERE VOLUMES DROPPED TO 380ML. RT NOTIFIED AND ATTEMPTED PLACING A CLAMP ON THE TUBE THAT LEADS TO THE CUFF, BUT PT STILL HAD A CUFF LEAK AND CUFF WAS REQUIRING AIR BE ADDED ABOUT EVERY HALF HOUR. DR. SENIOR INFORMED AND AGREED TO SWITCH OUT ETT. PT EXTUBATED AND REPLACED WITH ANOTHER 8.0 ETT. SECURED AT 25CM AT THE [facility]. 80MG PROPOFOL PUSH GIVEN BEFORE REINTUBATION. OG REMOVED PRIOR TO EXTUBATION AND REPLACED AFTER NEW ETT PLACED AT 1710. PT TOLERATED PROCEDURES WELL.
--- NOTE | 2021-11-06 18:40 | NUR ---
SHIFT SUMMARY PT REMAINS INTUBATED AND SEDATED. ETT AND OG PLACEMENT CONFIRMED BY DR. SENIOR AFTER EXCHANGE. NO CUFF LEAK SINCE TUBE EXCHANGE. LUNGS CLEAR, SR, BP STABLE. TOLERATING TUBE FEED TODAY. NO BM. AMIN WITH CLEAR GREEN URINE. IJ DRESSING CHANGED IT WAS STARTING TO PEEL UP. DRESSINGS ON PT'S LEGS CHANGED WELL MOISTURIZER APPLIED TO SCALING SKIN ON LEGS AND FEET. SPOKE WITH PT'S STEPDAUGHTER REBA AND PROVIDED UPDATE. SHE STATES THEY ARE TRYING TO GET A HOLD OF PT'S SISTER. THEY DO NOT HAVE A PHONE NUMBER FOR HER BUT ARE TRYING THROUGH SOCIAL MEDIA AND OTHER AVENUES. SHE STATES THEY DO NOT KNOW HOW TO GET A HOLD OF PT'S DAUGHTER.
--- NOTE | 2021-11-06 22:07 | NUR ---
SHIFT ASSESSMENT ASSUMED CARE OF PT @ 1900. PT INTUBATED AND SEDATED. PROPOFOL GTT INFUSING @ 45MCG'S. PT GIVEN BRIEF SED VACATION, ABLE TO FOLLOW ALL COMMANDS, WILL REPEAT DURING SBT IN THE AM. ETT MUCH BETTER THAN PRIOR NIGHT, NO LEAKS THUS FAR. TF CONTINUES AT GOAL, PT HAD MEDIUM BM PRIOR TO FULL BEDBATH/ LINEN CHANGE. AMIN CATH PATENT, URINE REMAINS GREENISH. BLE WOUNDS APPEAR MUCH BETTER, ABLE TO REMOVE SOME DRIED SKIN, NEW DRESSINGS PLACED.
[2021-11-07 04:04] LABS: Albumin, Blood 2.2 g/dL (3.4-5.0); Anion Gap 3 mmol/L (6-16); Blood Urea Nitrogen 28 mg/dL (8-24); Bun/Creatinine Ratio 28.1 (12.0-20.0); CO2, Blood 31 mmol/L (21-32); Calcium, Blood 8.2 mg/dL (8.5-10.1); Chloride, Blood 108 mmol/L (98-108); Glomerular Filtration Rate 87 (60-); Glucose, Blood 97 mg/dL (70-99); Phosphorus, Blood 3.4 mg/dL (2.5-4.9); Potassium, Blood 4.1 mmol/L (3.5-5.5); Sodium, Blood 142 mmol/L (136-145)
--- NOTE | 2021-11-07 06:25 | NUR ---
SHIFT SUMMARY PT REMAINS INTUBATED AND SEDATED. DURING Q2 TURNS PTS FIO2 NEEDED TITRATED TO 60% TO MAINTAIN O2 SATS >90% WHEN TURNED ON RIGHT SIDE. PT TOLERATING L SIDE AND SUPINE WELL. SMALL AMNT OF BLOODY SECRETIONS SUCTIONED FROM MOUTH. PROPOFOL REMAINS ON @ 45-50MCG'S. DURING SEDATION VACATION PT ABLE TO FOLLOW COMMANDS BUT BECOMES ANXIOUS QUICKLY. TF CONTINUES @ GOAL. ONE BM THIS SHIFT. NO OTHER SIGNIFICANT ACUTE CHANGES.
--- NOTE | 2021-11-07 13:50 | NUR ---
REASSESSMENT PT WAS OFF SEDATION FROM 0855 TO 1150 THIS MORNING. HE WAS ALERT, ANSWERING YES/NO QUESTIONS, FOLLOWING COMMANDS AND MOVING ALL EXTREMITIES. HE WAS ON SPONTANEOUS FOR MOST OF THAT TIME. PER DISCUSSION WITH DR. SENIOR WEAN ENDED ATT 1145 WHEN PT FIRST STARTED SHOWING SIGNS OF TIRING OUT IN ORDER TO AVOID OVER TIRING HIM. PT'S LUNGS ARE CLEAR. LARGE AMT OF SECRETIONS THIS MORNING AFTER TURNING HIM, THICK WHITE/YELLOW. SR, BP STABLE. LASIX GIVEN THIS MORNING WITH GOOD RETURN, SEE I/O. TOLERATING TUBE FEED. HAD A BM THIS MORNING, SOFT MIXED WITH FORMED HARD PIECES, CONTINUING BOWEL CARE. POWERGLIDE PLACED BY REBECCA CLEMONS TO GET READY FOR CENTRAL LINE DC. DR. SENIOR REQUESTED LINE LEFT IN 1 MORE DAY THEN RE EVALUATE TOMORROW.
--- NOTE | 2021-11-07 17:16 | NUR ---
SHIFT SUMMARY PT REMAINS INTUBATED. HE HAD A 3 HOUR WEANING TRIAL THIS MORNING, AND EXERCISING PT AGAIN THIS AFTERNOON WITH A WEANING TRIAL PER DR. SENIOR'S REQUEST. HE REMAINS ALERT, FOLLOWING COMMANDS. SR, BP STABLE. 2 BMS TODAY, TOLERATING TUBE FEED. GOOD OUTPUT FROM AMIN CL GRACIELA. CONTINUING TO MONITOR.
--- NOTE | 2021-11-07 19:15 | NUR ---
ASSUMED CARE PATIENT LYING IN BED INTUBATED AND SEDATED WITH PROPOFOL @ 45MCG/KG/MIN VIA [place] PG. NS @ 100ML/HR ALSO INF TO RT IJ CL. VENT SETTINGS 16/500/12/55% WITH SPO2 LOW 90'S. MONITOR SHOWS SR W/ RATE 80'S. VSS. NO FAMILY OR VISITORS AT BEDSIDE. PROPOFOL PLACED ON SB FOR APPROXIMATELY 15-20 MINUTES TO ASSESS NEURO STATUS. PATIENT BECAME AROUSABLE, FOLLOWED COMMANDS, AND NODDED "YES/NO" TO SIMPLE QUESTIONS. AMIN PATENT AND DRAINING TO GRAVITY. VHP INF @ GR 50ML/HR WITH 30ML Q4H WATER FLUSHES. REPORT RECEIVED FROM REBECCA ALVAREZ.
[2021-11-08 04:42] LABS: Albumin, Blood 2.2 g/dL (3.4-5.0); Anion Gap 4 mmol/L (6-16); Blood Urea Nitrogen 31 mg/dL (8-24); Bun/Creatinine Ratio 26.7 (12.0-20.0); CO2, Blood 31 mmol/L (21-32); Calcium, Blood 7.9 mg/dL (8.5-10.1); Chloride, Blood 107 mmol/L (98-108); Creatinine, Blood 1.16 mg/dL (0.60-1.20); Glomerular Filtration Rate 73 (60-); Glucose, Blood 94 mg/dL (70-99); Phosphorus, Blood 3.5 mg/dL (2.5-4.9); Potassium, Blood 3.7 mmol/L (3.5-5.5); Sodium, Blood 142 mmol/L (136-145)
--- NOTE | 2021-11-08 06:33 | NUR ---
SHIFT SUMMARY NO ACUTE EVENTS DURING SHIFT. PROPOFOL REMAINED @ 45MCG/KG/MIN. WOUND CARE TO BLE COMPLETED AND WOUND CONSULT PLACED. PATIENT'S DAUGHTER CALLED LAST NIGHT AND UPDATE GIVEN ON PATIENT STATUS. VSS. AMIN HAD A TOTAL OF 675ML OUT. MINIMAL RESIDUAL FROM TF.
--- NOTE | 2021-11-08 07:00 | NUR ---
ASSUME CARE: I have assumed care of this patient.
--- NOTE | 2021-11-08 17:15 | NUR ---
UPDATE: RT called and notified of rapid increase in Fi02
--- NOTE | 2021-11-08 19:01 | NUR ---
SHIFT SUMMARY: NEURO: with sedation paused, pt opens his eyes spontaneously and moves all extremities purposfully. He shakes his head "no" when asked if he is experiencing pain. CARDIAC: sinus rhythm on monitor, stable BP RESIPIRATORY: ventilator currently AC 16/500/12/60% with coarse lung sounds. Pt desatted and required significant FiO2 increased when turned to his left. GI/: urine clear green. total of 1500 out of shea. Small BM today. Tube feeds currently running at goal rate. PSYCH/SOCIAL: no visitors or family phone calls today.
--- NOTE | 2021-11-08 19:18 | NUR ---
Spoke to Lucina, daughter of pt's s/o. She is on the facesheet as a contact. Lucina explains that her mom Cass has a lot of guilt surrounding the past couple months. She states Cass feels she has been "mean" to the patient recently, and doesn't want him to pass away without her being able to tell him she loves him and she is sorry. Lucina asks if we can arrange a time to try a sedation vacation prior to withdrawing care, so Cass can feel like she has a better chance of him hearing her tell him she loves him and she is sorry. This seems reasonable, as it is the biggest reason the decision to withdraw care has not been made sooner. Will pass this along to bedside RN and Palliative team.
--- NOTE | 2021-11-08 19:40 | NUR ---
ASSUMED CARE OF PT, BEDSIDE REPORT RECEIVED. PT IS SEDATED AND RECLINING IN BED WITH BILAT SOFT WRIST RESTRAINTS IN PLACE, NOTED TOLERATING VENT WELL AT THIS TIME, AC 16, TV 500, PEEP 12, FIO2 60% AT THIS TIME, SATS MID TO UPPER 90S THROUGHOUT REPORT. PROPOFOL NOTED INFUSING AT 45 MCG/KG/MIN AT THIS TIME, NS AT 100 ML/HR, WILL MONITOR.
[2021-11-09 03:51] LABS: Hematocrit 34.4 % (37.0-53.0); Hemoglobin 10.7 g/dL (13.5-17.5); Mean Corpuscular HGB 26.3 pg (26.0-34.0); Mean Corpuscular HGB Conc 31.1 g/dL (31.5-36.5); Mean Corpuscular Volume 85 fL (80-100); Mean Platelet Volume 10.4 fL (9.1-12.4); Platelet Count 163 K/mm3 (150-400); RDW Coefficient Variation 15.5 % (11.7-14.2); RDW Standard Deviation 47.1 fL (35.1-46.3); Red Blood Cell Count 4.07 M/mm3 (4.30-5.90); White Blood Cell Count 6.11 K/mm3 (4.00-11.30)
[2021-11-09 04:08] LABS: Bun/Creatinine Ratio 28.4 (12.0-20.0); Calcium, Blood 8.2 mg/dL (8.5-10.1); Creatinine, Blood 1.09 mg/dL (0.60-1.20); Magnesium, Blood 2.2 mg/dL (1.6-2.4); Phosphorus, Blood 4.1 mg/dL (2.5-4.9); Potassium, Blood 3.8 mmol/L (3.5-5.5)
--- NOTE | 2021-11-09 05:32 | NUR ---
PT CONTINUES TO TOLERATE VENTILATOR WELL THROUGHOUT SHIFT, SEDATION LEVEL WITH PROPOFOL AT 45 MCG/KG/MIN ALLOWS FOR PT TO REMAIN RESPONSIVE TO VERBAL STIMULI, INCREASED EXTREMITY MOVEMENT IS NOTED THIS AM. HE IS INTERMITTENTLY NOTED TO FOLLOW COMMANDS. TOLERATES ORAL CARE WITH GRIMACING, STRONG COUGH, AND BREATH STACKING BUT MAINTAINS OXYGEN SATURATION THROUGHOUT. DISCUSSED AM POTASSIUM LEVEL WITH DR MARTINEZ THIS SHIFT WELL ORDERED LASIX SINCE AM DRAW, ORDERS RECEIVED FOR POTASSIUM CHLORIDE 20 MEQ BID IV 1ST DOSE WAS ADMINISTERED AT MIDNOC ASSESSMENT. PT TOLERATED TUBE FEEDING AT GOAL RATE, HIGHEST RESIDUAL THROUGHOUT SHIFT WAS 50 ML AT 0400 ASSESSMENT. PT HAS TOLERATED TURNS EVERY 2 HOURS THROUGHOUT SHIFT. NO ACUTE CHANGES THROUGHOUT NOC.
--- NOTE | 2021-11-09 07:30 | NUR ---
Received [id number] from Kierra FERNANDEZ. He is intubated and sedated and HOB elevated as well as extremities. He has 8.0 Et and is 25cm at teeth with vent settings of VC/VC 16/500/60/12 and sats 93%. He has RIJ dressing intact and site WNL and is infusing NS at 100 ml/hr and 2nd K rider, he also has PowerGlide to [place] and is infuaing Propofol at 45 mcg/kg/min. He has OG in place and is infusing VHP at 50 ml/hr and 30 ml water flushes q4. He has 16Fr shea draining to gravity dark yellow urine. He has dressings to bilateral calves that were changes on NOC shift. He is in bilateral soft wrist for line and patient safety.
--- NOTE | 2021-11-09 09:46 | NUR ---
No significant changes with patient. Meds given through OG and IV and tolerated well. Oral care and repositioning done. Dr Quesada has been by and assessed and no new orders. No changes to vent or gtt's.
--- NOTE | 2021-11-09 11:45 | NUR ---
Patient has been resting on vent with vent settings of AV/VC 16/500/60/12 >90%. Propofol has been 45 mcg/kg/min and is adequate sedation and NS at 100 ml/hr. Ha has increased output since dose of lasix.
--- NOTE | 2021-11-09 11:54 | NUR ---
Called Pt's SO and THEA's daughter Lucina answered the phone. Lucina reports SO Cass is feeling overwhelmed and Lucina is relaying information to Cass. Provided update and reviewed plan of care. Discussed goals moving forward with family requesting that staff perform a sedation vacation today and asking Pt if he is ok with intubation and current plan of care. Lucina reports Cass can not make it until tomorrow and if Pt is not ok with current plan of care then Cass will withdraw care tomorrow. Answered questions and validated concerns. Relayed request to Primary RN Jerel. Jerel will discuss with Pt during next sedation vacation. Palliative Care will remain available.
--- NOTE | 2021-11-09 11:59 | NUR ---
Palliative care spoke with significant other daughter and stated they will be in tomorrow. No changes to vent or gtt settings, he is arousable and follow simple commands. Dilcia has great output post lasix. Wound care by to assess bilateral LE's. He has moderate oral secretions and minimal ET secretions.
--- NOTE | 2021-11-09 13:30 | NUR ---
Sedation vacation started and left on AC/VC 16/500/60/12 and sats >90%. Stopped NS at 100 and changed to TKO. Patient had 1800 urine out post lasix.
--- NOTE | 2021-11-09 14:38 | NUR ---
Patient has been very daphoretic and placed cool wash cloth to back of neck and placed fan at low speed. His temp has been 98.9-98.3. He continues to open eyes when call his name but does not squeeze right hand on request or encouargement. Repositioned. Propofol remains off and NS TKO. Called Dr Quesada and will be extubating patient.
--- NOTE | 2021-11-09 14:55 | NUR ---
Dr Quesada by and extubated at 1445 to 2 L O2 via NC and sats 93-97%.
--- NOTE | 2021-11-09 15:30 | NUR ---
Patient remains with sedation off and Dr Quesada went to have discussion about if he wants to continue to be on vent as that was against his polst that they had found later. VSS. he is alert and able to answer simple question by knodding yes or no.
--- NOTE | 2021-11-09 18:03 | NUR ---
Patient remains intubated with 8.0 ET and 25 cm at gums and vent settings of AC/VC 16/500/60/12 with sats 94%. His Propofol is on SB and will turn back on after family comes and visit. He is wide awake and is able to answer questions. Dr Quesada spoke with patient and will extubate 12/11 when family present. VSS. Bilateral LE dressing C/D/I and no oozing through dressings. Ha remains patent and clear yellow urine. Lasix given.
--- NOTE | 2021-11-09 19:36 | NUR ---
ASSUMED CARE OF PT AT 1915, SEDATION WAS ON STANDBY FOR VISIT WITH FAMILY, PT AND FAMILY REQUESTED TO RESTART SEDATION WHEN SIGNIFICANT OTHER AND DAUGHTER LEAVE FOR THE NOC, PROPOFOL RESTARTED AT 45 MCG/KG/MIN AND FAMILY IS NOW OUT OF ROOM. PT WAS FULLY ALERT AND ANSWERED YES/NO QUESTIONS CONSISTENTLY. DENIES CP/PRESSURE, DENIES SOB/DYSPNEA, DENIES N/V, DENIES NUMBNESS/TINGLING. NODS YES WHEN PLAN OF CARE FOR THIS SHIFT IS DISCUSSED. FAMILY PLANS TO BE HERE TOMORROW FOR EXTUBATION. VENT SETTINGS CONTINUE AC 16/500/12/60% SATS MAINTAINING MID TO UPPER 90S AT THIS TIME, RESP RATE WNL. HTN NOTED, WILL MONITOR SEDATION IS RESUMED. OG REMAINS IN PLACE WITH VITAL HIGH PROTEIN INFUSING AT GOAL OF 50 ML/HR WITH WATER 30 ML EVERY [address] AMIN REMAINS IN PLACE DRAINING CLEAR YELLOW URINE AT THIS TIME. NS NOTED AT TKO.
[2021-11-10 03:46] LABS: BASOPHILS ABSOLUTE AUTO 0.03 K/mm3 (0.00-0.23); BASOPHILS PERCENT AUTO 1 % (0-2); EOSINOPHILS ABSOLUTE AUTO 0.34 K/mm3 (0.00-0.68); EOSINOPHILS PERCENT AUTO 5 % (0-6); Hematocrit 35.1 % (37.0-53.0); Hemoglobin 11.1 g/dL (13.5-17.5); IMMATURE GRAN ABSOLUTE AUTO 0.06 K/mm3 (0.00-0.10); IMMATURE GRAN PERCENT AUTO 1 % (0-1); LYMPHOCYTES ABSOLUTE AUTO 1.56 K/mm3 (0.84-5.20); LYMPHOCYTES PERCENT AUTO 24 % (21-46); MONOCYTES ABSOLUTE AUTO 0.49 K/mm3 (0.16-1.47); MONOCYTES PERCENT AUTO 7 % (4-13); Mean Corpuscular HGB 26.5 pg (26.0-34.0); Mean Corpuscular HGB Conc 31.6 g/dL (31.5-36.5); Mean Corpuscular Volume 84 fL (80-100); Mean Platelet Volume 10.4 fL (9.1-12.4); NEUTROPHILS ABSOLUTE AUTO 4.15 K/mm3 (1.96-9.15); NEUTROPHILS PERCENT AUTO 63 % (41-73); Platelet Count 177 K/mm3 (150-400); RDW Coefficient Variation 15.3 % (11.7-14.2); Red Blood Cell Count 4.19 M/mm3 (4.30-5.90); White Blood Cell Count 6.63 K/mm3 (4.00-11.30)
[2021-11-10 04:02] LABS: Bun/Creatinine Ratio 43.2 (12.0-20.0); Calcium, Blood 8.3 mg/dL (8.5-10.1); Creatinine, Blood 0.81 mg/dL (0.60-1.20); Potassium, Blood 3.5 mmol/L (3.5-5.5)
--- NOTE | 2021-11-10 05:48 | NUR ---
PT SEDATION VACATION COMPLETED EARLY THIS SHIFT, HE WAS ABLE TO MOVE ALL EXTREMITIES WEAKLY, FOLLOWED VERBAL DIRECTION WELL, ANSWERED YES/NO QUESTIONS CONSISTENTLY, FAMILY WAS AT BEDSIDE FOR SEDATION VACATION. PROPOFOL WAS RESUMED INFUSING AT 1930 PER PT AND FAMILY REQUEST. HE HAS REMAINED SEDATED THROUGHOUT THE REST OF THIS SHIFT, TOLERATES VENTILATOR WELL, DOES OPEN EYES TO VERBAL DIRECTION AND WEAKLY MOVES HANDS/FEET WHEN INSTRUCTED, TURNS ARE TOLERATED WITH BRIEF DURATION OF INCREASED COUGHING HOWEVER PT CALMS QUICKLY AND THEN TOLERATES VENTILATOR WELL. SATS MID 90S LUNG SOUNDS HAVE IMPROVED THROUGHOUT BUT REMAIN DIMINISHED IN BASES BILAT. PRESSURES WERE NOTED TO BE TRENDING DOWN WITH SBP LOW 100S, MIDNOC LASIX HELD DUE TO PRESSURE TREND, PT HAS MAINTAINED SBP 110S THE REST OF THIS SHIFT, RATE CONTINUES 70S. VITAL HIGH PROTEIN CONTINUES AT GOAL, RESIDUALS WERE 10 ML, 60 ML, AND 55 ML, LARGE BROWN PUDDING CONSISTENCY BOWEL MOVEMENT X 1 EARLY THIS SHIFT. AMIN REMAINS IN PLACE DRAINING CLEAR DARK YELLOW URINE TO GRAVITY. DRESSING TO RIGHT IJ CENTRAL LINE CHANGED THIS SHIFT SMALL AMOUNT OF BLEEDING IS NOTED UNDER DRESSING THIS AM. WILL CONT TO MONITOR FOR CHANGES.
--- NOTE | 2021-11-10 08:00 | NUR ---
Received report from Michelle FERNANDEZ. Patient is intubated and sedated with 8.0 ET and is 25 cm at [facility]. His vent setting are AC/VC 16/500/50/12 and sats 93%. He arouse slightly to verbal stimuli. He has RIJ, dressing intact and site and is infusing NS TKO. Also has 18ga PowerGlide [place] and is infusing Propofol at 45 mcg/kg/min. He has OG in place and is infusing VHP at 50 ml/hr and 30 ml water flushed q4 and very low residuals.He has dressings to bilateral LE's and were assessed an d changed by wound care yesterday late afternoon. He has 16Fr shea draining to gravity clear yellow urine. He has nelson;ateral soft wrist restraints in place for line,tube and patient safety.
--- NOTE | 2021-11-10 10:49 | NUR ---
Patient continues on same vent setting and gtt's. He is arousable to verbal stimuli. Repositioned. Awaiting family for extubation. patient tolerated meds OG amd IV. Bilateral LE dressings C/D/I.
--- NOTE | 2021-11-10 12:19 | NUR ---
Repositioned. No changes to vent or gtts. Patient remains resting on vent with signs of grimacing or pain. TF continues at 50 ml/hr of VHP.
--- NOTE | 2021-11-10 14:01 | NUR ---
Family called and is on there way in. Dr Quesada wants to talk with family first. He has been tolerating current vent setting and breathing well along with vent and intermitent coughing. He has had moderate secretions with ET suctioning and moderate oral secretions.
--- NOTE | 2021-11-10 16:01 | NUR ---
ASSUMED CARE OF PT: ASSUMED CARE OF PT THIS AFTERNOON AT 1445. THE PT IS INTUBATED AND SEDATED AT THIS TIME WITH PROPOFOL RUNNING AT 45 MCG AND VENT SETTINGS AC/VC 16/500/12/60%; OXYGEN LEVELS ARE MAINTAINING 92<. PT IS IN SR WITH HR IN THE 70'S AND SBP IN THE 110'S. THE PT'S FAMILY IS CURRENTLY ON THE WAY TO VISIT WITH THE PT. DR DAWKINS TALKED WITH THE FAMILY AT 1530 TO DISCUSS THE PLANS TO EXTUBATED PER PT'S REQUEST. THE FAMILY WAS EDUCATED ON THE PROCESS AND ALL QUESTIONS WERE ANSWERED AT THE TIME. DR DAWKINS REQUESTED THE SEDATION TO BE TURNED OFF, AND THE PROPOFOL WAS PUT ON SB AT 1545. THE FAMILY REMAINS AT BEDSIDE WITH THE PT. DR DAWKINS PLANS ON OFFERING THE PT BIPAP AFTER EXTUBATION IF NEEDED, HOWEVER, IF THE PT REFUSES, THE PT AND THE FAMILY HAS BEEN EDUCATED ON COMFORT MEASURES FOR THE PT IF HE WERE TO ENTER RESPIRATORY DISTRESS. TUBE FEEDINGS WERE STOPPED BY DANIELITO FERNANDEZ IN PREPARATION FOR THE EXTUBATION LATER TODAY; IN ADDITION, THE 1400 SCHEDULED LUQUICEL HAS BEEN WITHHELD FOR THE SAME CIRCUMSTANCE. WILL CONTINUE TO MONITOR THROUGHOUT THE SHIFT.
--- NOTE | 2021-11-10 17:42 | NUR ---
SHIFT SUMMARY: THE PT WAS EXTUBATED AT 1730 AND IS SHOWING NO SIGNS OF RESPIRATORY DISTRESS; OXYGEN LEVELS ARE MAINTAINING 94< WITH RR 14-16. THE PT IS CURRENTLY ON 10 L HIGH FLOW OXYGEN AT THIS TIME. THERE IS A BIPAP SETUP AT BEDSIDE IF NEEDED. THE PT WAS CLEANED UP WITH WARM WASH CLOTHS OVER HIS FACE AND NECK, AND REPLACED HIS GOWN. THE PT IS ABLE TO PROVIDE MODERATE COUGH EFFORT AND IS ABLE TO ANSWER SIMPLE QUESTIONS BY VERBALIZING YES/NO. THE PT IS ALERT, ORIENTED, AND AWARE OF HIS OWN LIMITATIONS. THE PT IS IN SR WITH HR IN THE 70'S WITH SBP IN THE 150-160'S. THE CENTRAL LINE DRESSING WAS CHANGED TODAY; THE SITE HAS BEEN OOZING BLOOD OUT THROUGHOUT THE SHIFT. THE NEW DRESSING HAS BEEN REINFORCED WITH AN ABSOBENT PAD TO HELP COLLECT THE BLOOD. ONE CORNER OF THE DRESSING IS LIFTING SLIGHTLY DUE TO THE BLOOD. WILL CONTINUE TO MONITOR UNTIL ONCOMING NURSE ARRIVES.
--- NOTE | 2021-11-10 20:18 | NUR ---
ASSUMED CARE OF PT AT 1900. REPORT RECEIVED AT BEDSIDE. PT PRESENTS IN BED. ALERT AND ORIENTED. PT'S S.O. AT BEDSIDE. PT IN NO APPARENT DISTRESS AT THIS TIME. DOES COMMUNICATE HIS NEEDS THOUGH HIS VOICE IS VERY GARBLED. DISCUSSED WITH PT TO USE SINGLE WORD AT A TIME AND GO SLOWER TO MAKE HIS NEEDS KNOWN, AND WORDS MORE CLEAR. PT DEMONSTRATES A GOOD COUGH EFFORT. TEACHING DONE TO USE YAUNKEUR TO SELF CLEAR HIS SECRETION. THIS WILL REQUIRE MORE TEACHING AND COUACHING. CALL MADE TO DR DAWKINS SECONDARY TO PT'S ELEVATED BLOOD PRESSURES SINCE EXTUBATION. ORDER RECEIVED FOR LABATELOL PRN. WILL SEE IF BLOOD PRESSURES IMPROVES WITH REPOSITIONING AND PAIN MEDICATIONS IF HE NEEDS. DOES COMPLAIN OF SORE THROAT FROM ETT. WILL REVIEW CHART AND PLAN OF CARE FOR THIS PT.
--- NOTE | 2021-11-10 22:04 | NUR ---
CENTRAL LINE SITE CONTINUES WITH OOZE. DID DO DRESSING CHANGE. AT FIRST USED BIPATCH, AND DIRECT PRESSURE FOR APPROX 5 MINUTES. WHEN CHECKING BACK ON PT NOTED OOZE HAD CONTINUED. DIRECT PRESSURE AGAIN HELD FOR APPROX 8 MINUTES. DRESSING CHANGED. DID USE LAURA DRESSING OVER SITE. COVERED WITH GAUZE AND SECURED WITH TCH DRESSING. WILL MONITOR. PT TOLERATES THIS WELL. DOES DENY PAIN. O2 HAS BEEN TURNED TO 8 L/M FROM 10. PT MAINTAINS > 90 PERCENT SATURATIONS. WILL CONTINUE TO MONITOR FOR ABILITY TO TITRATE FURTHER.
[2021-11-11 03:57] LABS: Hematocrit 37.8 % (37.0-53.0); Hemoglobin 11.8 g/dL (13.5-17.5); Mean Corpuscular HGB 26.3 pg (26.0-34.0); Mean Corpuscular HGB Conc 31.2 g/dL (31.5-36.5); Mean Corpuscular Volume 84 fL (80-100); Mean Platelet Volume 9.5 fL (9.1-12.4); Platelet Count 193 K/mm3 (150-400); RDW Coefficient Variation 15.3 % (11.7-14.2); RDW Standard Deviation 46.5 fL (35.1-46.3); Red Blood Cell Count 4.48 M/mm3 (4.30-5.90); White Blood Cell Count 8.09 K/mm3 (4.00-11.30)
[2021-11-11 04:29] LABS: Bun/Creatinine Ratio 29.8 (12.0-20.0); Calcium, Blood 8.6 mg/dL (8.5-10.1); Creatinine, Blood 1.04 mg/dL (0.60-1.20); Potassium, Blood 3.8 mmol/L (3.5-5.5)
--- NOTE | 2021-11-11 05:46 | NUR ---
CENTRAL LINE SITE CONTINUED WITH OOZE. DID OPT TO REMOVE CVC. PRESSURE HELD FOR 15 MINUTES. LAURA DRESSING PLACED AND SECURED WITH OPSITE DRESSING. VSS HAVE IMPROVED THROUGH THE NIGHT. PT REMAINS DIFFICULT TO UNDERSTAND BUT WITH EFFORT, PT IS ABLE TO VERBALIZE NEEDS. NO COMPLAINTS OF PAIN VOICED BY PT. HAS TOLERATED Q 2 HOUR TURNS. HAS BEEN INCONTINENT TO STOOL SEVERAL TIMES THIS NIGHT. WAS NOT ABLE TO INFORM STAFF THAT HE HAD BM. WILL CONTINUE TO MONITOR PT, AND WILL REPORT OFF TO ONCOMING RN.
--- NOTE | 2021-11-11 07:00 | NUR ---
ASSUMED CARE OF PT @0700. PT IS AWAKE, A&O X3, GARBLED SPEECH, O2 SAT >92% ON 8L HIGH FLOW, HR 100-110, BP STABLE, AMIN CATHETER DRAINING TO GRAVITY, NS TKO 10MLS/HR.
--- NOTE | 2021-11-11 12:00 | NUR ---
BEDSIDE SWALLOW EVAL PERFORMED AFTER SWAB AND SUCTION ORAL CARE. PT HAD THROAT CLEARING AND GENTLE COUGH. NO CHOKING, GAGGING, OR DROP IN 02 SATS. SPEECH THERAPY EVAL REQUESTED.
--- NOTE | 2021-11-11 17:03 | NUR ---
SUMMARY Neuro: Pt A&O x 3. Answers questions, follows commands, verbalizes needs. Pleasant and cooperative with care. Speech garbled initially but has cleared as day has progressed. Pt able to follow commands and verbalize needs. Pt overall pleasant and cooperative with care. Afebrile. Musculoskeletal: Requires assist with ADLs and repositioning. Pt worked with physical and occupational therapy today. Pt able to stand up from recliner with gait belt and walker. Sat up in chair for approx 5 hours today. Used ceiling lift to transfer patient between recliner and bed. Respiratory: Lungs clear t/o, diminished in bases. Occasional dry cough. SpO2 90% or greater with 7 LPM high flow NC. Cardiac: ST per monitor initially, but resolved with one dose of IV labetalol. SR per monitor. BP stable. Edema unchanged from initial assessment. Capillary refill less than 3 seconds BUE and BLE. GI: Speech therapy in to see patient and prescribed diet. Pt tolerating diet well without signs of aspiration. Abd moderately distended, pt states he feels bloated. 2 incontinent voids of liquid brown stool today. : Ha catheter patent and draining clear yellow urine. Skin: Unchanged from inital assessment. Wound dressings not changed this shift. C/D/I. Psychosocial: Pt in good spirits. Visited with family in room today.
--- NOTE | 2021-11-11 18:17 | NUR ---
5 TO U 12 BY BED. PT DENIES PAIN OR SOB. PT ASSISTED WITH DINNER PER REQUEST
[2021-11-12 05:22] LABS: Bun/Creatinine Ratio 27.6 (12.0-20.0); Calcium, Blood 8.7 mg/dL (8.5-10.1); Creatinine, Blood 0.98 mg/dL (0.60-1.20); Magnesium, Blood 2.4 mg/dL (1.6-2.4); Phosphorus, Blood 3.7 mg/dL (2.5-4.9); Potassium, Blood 3.9 mmol/L (3.5-5.5)
--- NOTE | 2021-11-12 06:09 | NUR ---
NOC SHIFT SUMMARY PT SLEPT WELL OVERNIGHT, ORIENTED X4 WITH SOME DELAYED RESPONSES WHEN FIRST WAKING. SR/ST ON TELEMETRY, VSS PER PT TREND. ON 8-10L NC OVERNIGHT. TACHYPNEIC W/ANY MOVEMENT W/INCREASED O2 DEMAND. AMIN W/SEDIMENTOUS YELLOW DRAINAGE. NO COMPLAINTS OF PAIN OR DISCOMFORT. WOUNDS NOTED TO BILATERAL LE AND MEPILEX PLACED ON BOTTOM. INCONTINENT OF STOOL OVERNIGHT X2. NO STOOL SOFTENERS GIVEN. WILL CONTINUE TO MONITOR AND PASS ON TO DAY RN.
--- NOTE | 2021-11-12 07:17 | NUR ---
Bedside report received from REBECCA Garcia. The pt is alert, oriented and talking on the phone with his . He appears calm and comfortable. No needs voiced except to request help dialing the phone.
--- NOTE | 2021-11-12 07:43 | NUR ---
Dressing on the right lateral neck (previous central line, possibly) noted soiled with dried blood and not intact. Removed the dressing and blood noted seeping from wound. Pressure held for 5 minutes with gauze and then cleansed with chlorohexidine skin cleanser, exudry applied and secured with sterile tegederm dressing. Pt states that he is comfortable. Assisted with drinks of water. Spo2 dropped to 88% briefly during drinking and talking, but quickly resolves.
--- NOTE | 2021-11-12 15:25 | NUR ---
Pt is sitting up in recliner, talking cheerfully and animatedly with two visitors. He has had no complaints this afternoon. Appetite is good.
--- NOTE | 2021-11-12 18:40 | NUR ---
summary Today Andrew has been able to be weaned from 8 l/min of oxygen to 4 l/min n.c. delivery. He was OOB to the recliner chair for most of the day and also used the bedside commode. Appetite good, but still needed assistance for eating due to his weakness in arms and legs. Significant improvement in the amount of swelling in both hands and arms. Ha was discontinued this evening. The pt has had small amounts of liquid stool incontinence, which he was aware of he said, but too embarassed to let staff know. He accidentally pulled out his Powerglide midline IV catheter when he was attempting to get up our of his chair unassisted after stool incontinence. Strongly encouraged the pt for his safety not to attempt to stand or walk without staff assisting. He is still requiring assistance due to his weakness, but able to walk very short distances for transfer using the geriwalker. Cass and daughter Lucina were here visiting this afternoon.
[2021-11-13 05:41] LABS: Hematocrit 36.5 % (37.0-53.0); Hemoglobin 11.4 g/dL (13.5-17.5); Mean Corpuscular HGB 26.5 pg (26.0-34.0); Mean Corpuscular HGB Conc 31.2 g/dL (31.5-36.5); Mean Corpuscular Volume 85 fL (80-100); Mean Platelet Volume 9.7 fL (9.1-12.4); Platelet Count 196 K/mm3 (150-400); RDW Coefficient Variation 14.7 % (11.7-14.2); RDW Standard Deviation 45.3 fL (35.1-46.3); White Blood Cell Count 8.23 K/mm3 (4.00-11.30)
[2021-11-13 06:07] LABS: Albumin, Blood 2.7 g/dL (3.4-5.0); Anion Gap 2 mmol/L (6-16); Blood Urea Nitrogen 26 mg/dL (8-24); Bun/Creatinine Ratio 26.7 (12.0-20.0); CO2, Blood 38 mmol/L (21-32); Calcium, Blood 8.5 mg/dL (8.5-10.1); Chloride, Blood 103 mmol/L (98-108); Creatinine, Blood 0.97 mg/dL (0.60-1.20); Glomerular Filtration Rate 90 (60-); Glucose, Blood 105 mg/dL (70-99); Phosphorus, Blood 3.9 mg/dL (2.5-4.9); Potassium, Blood 3.7 mmol/L (3.5-5.5); Sodium, Blood 143 mmol/L (136-145)
--- NOTE | 2021-11-13 06:12 | NUR ---
NOC SHIFT SUMMARY PT SLEPT WELL OVERNIGHT. NO COMPLAINTS OF PAIN OR DISCOMFORT. TITRATED DOWN TO 3LNC, TOLERATING WELL. VSS PER PT TREND. Q2 TURNS, SKIN TEAR NOTED TO GLUTEAL CLEFT AND BARRIER CREAM APPLIED. ATTEMPTED CONDOM CATHETER FOR ACCURATE I&O'S, CAME OFF X2. BRIEF PLACED ON PT. BM X1. LOWER EXTREMITIES RED/SCALY AND SRINI. PT ORIENTED X4 WITH SOME DISORIENTATION WHEN FIRST AWAKENS FROM SLEEPING. WILL CONTINUE TO MONITOR AND PASS ON TO DAY RN
--- NOTE | 2021-11-13 08:00 | NUR ---
PT PLEASANT, SOME SLOW TO RESPOND WHEN JUST AWAKENED. THEN IS QUITE TALKATIVE, ENOUGH TO DESAT AND MUST REMIND TO BREATHE AND SLOW DOWN. A/O X3. SOME FORGETFUL ON AWAKENING. DENIES PAIN AT THIS TIME. H/R REG, DISTANT, NO MURMUR NOTED. PER TELE NSR WITH BBB, RATE 94. LUNGS COARSE AND DIM T/O. ON 5L O2 TO MAINTAIN O2 > 92%. BT X4 LAST BM YEST X2 PER PT. VOIDS PER URINAL, OFTEN INCONTINENT. 2 ASST TO BSC OR CHAIR. HELD BP MED FOR AN HOUR, IT WAS UP AT 1000 TO 129/88, SO GAVE AT THAT TIME. BED IN LOW POSITION, CALL LITE IN REACH, CALLS APPROP. BED ALARM ON FOR SAFETY
--- NOTE | 2021-11-13 17:31 | NUR ---
PT PLEASANT TODAY. VERY TALKATIVE. HAVE TO ENCOURAGE TO SLOW DOWN SOME. IS FLIGHTS OF IDEAS AT TIMES. LUNGS CLEARED UP SOME THIS AFTERNOON. HE HAS BEEN IN CHAIR TODAY FOR SEVERAL HOURS. DOING WELL. 1 ASST. O2 SLIGHTLY IMPROVED. TURNED DOWN TO 3L TO SEE IF CAN TOLERATE AND MAINTAIN. NO C/O PAIN. HE HAS BEEN LISTENING TO BOOKS/STORIES ON PHONE. NO NEW CONCERNS NOTED. BED IN LOW POSITION, CALLLITE IN REACH, CALLS APROP
--- NOTE | 2021-11-14 01:09 | NUR ---
Took over care of this pt from Paula FERNANDEZ. I agree with previous RN's assessment.
--- NOTE | 2021-11-14 06:08 | NUR ---
No acute changes overnight. Maintains over 93% on 3L NC. Was unable to sleep this shift. NSR with BBB on tele. Patient very adament on going home today. Will report to oncoming nurse.
--- NOTE | 2021-11-14 08:00 | NUR ---
PT PLEASAND COOP VERY TALKATIVE. IS FLIGHTS OF IDEAS. OFTEN TALKING NONSTOP ABOUT THINGS THAT INTEREST HIM. STATES LONELY & NEEDS TO TALK. DENIES PAIN. SLOW TO AWAKEN. HE TOOK OFF CPAP AND NEGLECTED TO PLACE N/C. O2 DROPPED TO MID 80'S. PLACED AND CAME BACK UP TO 92% ON 4L. PT DENIES SOB. H/R REG, NO MURMUR NOTED. PER TELE. NSR AT 98. LUNGS ARE CLEAR UPPER AND VERYDIM BASES BILAT. RESP EASY, UNLABORED. ON 4L O2 N/C . ABD IS LARGE, NONTENDER. STATES LAST BM YEST. NORMAL. REFUSED THE STOOL SOFTENERS. VOIDS CONT/INCONT TO BSC AND USES URINAL. PT AGREES TO GET UP TO CHAIR TODAY. BED IN LOW POSITION,C ALL LITE IN REACH, CALLS APPROP
--- NOTE | 2021-11-14 12:13 | NUR ---
PT SITTING IN CHAIR. DENIES PAIN. CONTINUES TO BE QUITE TALKATIVE. EATING LUNCH. O2 ON 4L SATTING AT 96-97% AT THIS TIME
--- NOTE | 2021-11-14 16:43 | NUR ---
SPOKE TO DR KWON POTASSIUM IV. PT TAKING PO ADEQUATELY, OKAY TO SWITCH TO PO POTASSIUM CHLORIDE 20 MEQ BID. SAME DOSING WAS IV. DONE
--- NOTE | 2021-11-14 18:04 | NUR ---
PT PLEASANT TODAY. NO C/O PAIN. HAS BEEN IN CHAIR TODAY GOOD PART OF DAY. HAS REMAINED CONTINENT TODAY. HAVE BEEN ABLE TO TURN O2 DOWN TO 3L AGAIN TODAY. MAINTAINING >93%. PT HAS BEEN ON PHONE, TALKING MUCH MOST OF DAY. NO NEW CONCERNS NOTED. BED IN LOW POSITION, CALL LITE IN REACH, CALLS APPROP
[2021-11-15 04:26] LABS: Hematocrit 35.5 % (37.0-53.0); Mean Corpuscular HGB 26.3 pg (26.0-34.0); Mean Corpuscular Volume 85 fL (80-100); Platelet Count 216 K/mm3 (150-400); RDW Coefficient Variation 14.6 % (11.7-14.2); RDW Standard Deviation 44.9 fL (35.1-46.3); Red Blood Cell Count 4.19 M/mm3 (4.30-5.90); White Blood Cell Count 9.21 K/mm3 (4.00-11.30)
[2021-11-15 04:46] LABS: Alanine Aminotransfer (ALT/SGP 31 U/L (12-78); Albumin, Blood 2.8 g/dL (3.4-5.0); Albumin/Globulin Ratio 0.6 (0.8-1.8); Alk Phos 47 U/L (50-136); Anion Gap 5 mmol/L (6-16); Aspartate Aminotrans (AST/SGOT 33 U/L (12-37); Bilirubin, Direct <0.1 mg/dL (0.0-0.3); Bilirubin, Indirect Unable to Calculate mg/dL (0.1-0.7); Bilirubin, Total 0.4 mg/dL (0.1-1.0); Blood Urea Nitrogen 32 mg/dL (8-24); Bun/Creatinine Ratio 28.1 (12.0-20.0); CHOL/HDL RATIO 5.1; CO2, Blood 34 mmol/L (21-32); Calcium, Blood 8.5 mg/dL (8.5-10.1); Chloride, Blood 101 mmol/L (98-108); Cholesterol 185 mg/dL (50-200); Creatinine, Blood 1.14 mg/dL (0.60-1.20); Globulin, Blood 4.6 g/dL (2.2-4.0); Glomerular Filtration Rate 75 (60-); Glucose, Blood 102 mg/dL (70-99); HDL Cholesterol 36 mg/dL (>39); LDL/HDL RATIO 3.5; Low Density Lipoprotein Chol 127 mg/dL (0-110); Potassium, Blood 4.2 mmol/L (3.5-5.5); Sodium, Blood 140 mmol/L (136-145); Total Protein, Blood 7.4 g/dL (6.4-8.2); Triglycerides 112 mg/dL (30-160); Very Low Density Lipoprot Chol 22 mg/dL (6-32)
--- NOTE | 2021-11-15 06:22 | NUR ---
STONEMASON APPRENTICE SUMMARY PT IS ALERT AND ORIENTED COMMUNICATING APPRORPIATELY WITH STAFF. PT IS SLIGHTLY MANIC AT TIMES RAPIDLY CHANGING CONVERSATION MID SENTANCE TO TALK ABOUT SOMETHING ELSE. PT HAS MAINTAINED O2 SATS >90% ON 2L NC ALL SHIFT. BP WNL AND STABLE THIS SHIFT. TELLE SHOWING SR/ST 90'S-100'S THIS SHIFT. PT AFEBRILE THIS SHIFT. THE PT WAS ABLE TO SLEEP COMFORTABLY FOR MOST OF THE NIGHT. PT IS CONVINCED HE IS GOING HOME TODAY AND CONTINUES TO STATE THAT HE IS "LEAVING ONE WAY OR ANOTHER TODAY". WILL REPORT TO ONCOMING RN.
[2021-11-15] MEDS ORDERED: ELIQUIS5 M2 PO ×2 (12:32→12:34)
[2021-11-15] MEDS ORDERED: Lisinopril2.5 MG PO (12:35)
[2021-11-15] MEDS ORDERED: POTCHL20ER PO (12:36)
[2021-11-15] MEDS ORDERED: METO25ER PO (12:36)
[2021-11-15] MEDS ORDERED: FURO40 PO (12:37)
[2021-11-15] MEDS ORDERED: ALBU8HFA2 INH (12:37)
--- NOTE | 2021-11-15 16:12 | NUR ---
UPDATE PT REMAINED ALERT AND ORIENTED ALL SHIFT. VS STABLE. HOME O2 EVAL DONE AND [facility] IN TO PROVIDE PT WITH HOME O2. PT PROVIDED DC INSTRUCTIONS. PT EDUCATED ON ALL NEW MEDICATIONS. ALL QUESTIONS ANSWERED. PT AWAITING RIDE AND THEN WILL BE TAKEN OUT BY WC.
== END 2021-11-15 17:04 | disposition home or self-care (01) | DRG 870 ==
LOC: ER 12:45 → EDBD 12:45 → PCU 15:06 → ICUW 15:06 → ICUE 15:06 → ICUW 11-03 17:17 → PCU 11-11 18:01
PROVIDERS: Emergency Medicine; Internal Medicine; Internal Medicine Critical Care Medicine; ADMIT Internal Medicine
PROC: 5A1955Z Respiratory Ventilation, Greater than 96 Consecutive Hours (ICD-10-PCS; principal; 2021-11-02)
PROC: 0BH18EZ Insertion of Endotracheal Airway into Trachea, Via Natural or Artificial Opening Endoscopic (ICD-10-PCS; 2021-11-02)
PROC: 02HV33Z Insertion of Infusion Device into Superior Vena Cava, Percutaneous Approach (ICD-10-PCS; 2021-11-02)
PROC: 3E03329 Introduction of Other Anti-infective into Peripheral Vein, Percutaneous Approach (ICD-10-PCS; 2021-11-02)
DX: A41.9 Sepsis, unspecified organism (principal); G92.8 Other toxic encephalopathy; I26.99 Other pulmonary embolism without acute cor pulmonale; J18.9 Pneumonia, unspecified organism; J96.01 Acute respiratory failure with hypoxia; I21.A1 Myocardial infarction type 2; I50.31 Acute diastolic (congestive) heart failure; J69.0 Pneumonitis due to inhalation of food and vomit; E87.2 Acidosis; G93.1 Anoxic brain damage, not elsewhere classified; N17.9 Acute kidney failure, unspecified; L03.115 Cellulitis of right lower limb; R65.20 Severe sepsis without septic shock; E78.5 Hyperlipidemia, unspecified; Z20.822 Contact with and (suspected) exposure to COVID-19; Z68.35 Body mass index [BMI] 35.0-35.9, adult; Z66 Do not resuscitate; Z74.01 Bed confinement status; I87.2 Venous insufficiency (chronic) (peripheral); S81.809A Unspecified open wound, unspecified lower leg, initial encounter; X58.XXXA Exposure to other specified factors, initial encounter; F15.10 Other stimulant abuse, uncomplicated; I67.2 Cerebral atherosclerosis; T43.621A Poisoning by amphetamines, accidental (unintentional), initial encounter
CPT/HCPCS: 0241U; 31500; 36415; 36556; 51702; 70450; 71045; 71260; 80047; 80048; 80053; 80061; 80069; 81001; 82248; 82803; 82947; 83036; 83605; 83735; 83880; 84100; 84443; 84484; 85014; 85025; 85027; 85610; 85730; 87040; 87070; 87205; 92526; 92610; 93005; 93010; 94002; 94003; 94644; 94660; 94664; 94760; 94761; 94762; 96374-59; 96375-59; 97110; 97116; 97162; 97166; 97530; 97535; 99291-25; A9270; C1751; C8929; C9113; J0696; J1644; J1650; J1940; J1956; J2250; J2405; J2704; J3010; J3480; J7030; J7040; J7050; Q9957; Q9967

== ENCOUNTER 2022-01-19 22:02 | Inpatient (IN) | payer OTHER ==
[~2022-01-19] VITALS: Ht 188 cm; Wt 151.4 kg
[~2022-01-19 22:02] MED LIST: ALBU8HFA2 INH; ELIQUIS5 M2 PO; FURO40 PO; Lisinopril2.5 MG PO; METO25ER PO; POTCHL20ER PO
[2022-01-19 22:35] LABS: Hematocrit 38.1 % (37.0-53.0); Hemoglobin 11.3 g/dL (13.5-17.5); Mean Corpuscular HGB 26.3 pg (26.0-34.0); Mean Corpuscular HGB Conc 29.7 g/dL (31.5-36.5); Mean Corpuscular Volume 89 fL (80-100); Mean Platelet Volume 9.7 fL (9.1-12.4); NRBC ABSOLUTE 0.05 K/mm3 (0.00-0.02); NRBC Auto 0.2 /100 WBC (0.0-0.2); Platelet Count 139 K/mm3 (150-400); RDW Coefficient Variation 15.1 % (11.7-14.2); RDW Standard Deviation 49.4 fL (35.1-46.3); Red Blood Cell Count 4.29 M/mm3 (4.30-5.90); White Blood Cell Count 23.11 K/mm3 (4.00-11.30)
[2022-01-19 22:41] LABS: PCO2 Arterial 69.4 mmHg (35-45); PO2 Arterial 153 mmHg (80-100); pH Blood Arterial 7.11 (7.35-7.45)
[2022-01-19 22:55] LABS: BAND PERCENT MAN 16 % (0-8); BASOPHILS PERCENT MAN 0 % (0-2); EOSINOPHILS ABSOLUTE MAN 0.23 K/mm3 (0.00-0.68); EOSINOPHILS PERCENT MAN 1 % (0-6); LYMPHOCYTES ABSOLUTE MAN 2.07 K/mm3 (0.84-5.20); LYMPHOCYTES PERCENT MAN 9 % (21-46); METAMYELOCYTE ABSOLUTE MAN 0.46 K/mm3 (0.00-0.00); METAMYELOCYTE PERCENT MAN 2 % (0-0); MONOCYTES ABSOLUTE MAN 0.23 K/mm3 (0.16-1.47); MONOCYTES PERCENT MAN 1 % (4-13); MYELOCYTE ABSOLUTE MAN 0.69 K/mm3 (0.00-0.00); MYELOCYTE PERCENT MAN 3 % (0-0); NEUTROPHILS ABSOLUTE MAN 19.41 K/mm3 (1.96-9.15); SEG NEUTROPHILS PERCENT MAN 68 % (41-73); TOTAL CELLS COUNTED 100
[2022-01-19 22:57] LABS: Magnesium, Blood 2.8 mg/dL (1.6-2.4)
[2022-01-19 23:01] LABS: Albumin/Globulin Ratio 0.4 (0.8-1.8); Bilirubin, Total 0.3 mg/dL (0.1-1.0); Bun/Creatinine Ratio 10.8 (12.0-20.0); Calcium, Blood 8.6 mg/dL (8.5-10.1); Creatinine, Blood 1.76 mg/dL (0.60-1.20); Globulin, Blood 4.9 g/dL (2.2-4.0); Potassium, Blood 3.9 mmol/L (3.5-5.5); Thyroid Stimulating Hormone 2.79 uIU/mL (0.360-4.800); Total Protein, Blood 6.9 g/dL (6.4-8.2)
[2022-01-19 23:10] LABS: U Amphetamine Screen DETECTED; U Barbituate Screen Not Detected; U Benzodiazapine Screen Not Detected; U Buprenorphine Screen Not Detected; U Cannabinoids Screen DETECTED; U Cocaine Screen Not Detected; U Methadone Screen Not Detected; U Methamphetamine Screen DETECTED; U Opiates Screen Not Detected; U Oxycodone Screen Not Detected; U Phencyclidine Screen Not Detected; U Propoxyphene Screen Not Detected
[2022-01-19 23:17] LABS: International Normalized Ratio 1.14; Prothrombin Time Results 11.9 Sec (9.7-11.5)
[2022-01-19 23:33] LABS: Influenza A, PCR NEGATIVE (NEGATIVE); Influenza B, PCR NEGATIVE (NEGATIVE); Resp Syncytial Virus, PCR NEGATIVE (NEGATIVE); SARS-Cov-2 (COVID-19) PCR, MMC NEGATIVE (NEGATIVE)
[2022-01-20 00:48] LABS: Source, Urine Foley catheter
[2022-01-20 00:53] LABS: Bilirubin, Urine Neg (Neg); Blood, Urine 3+ (Neg); Glucose Qualitative, Urine 2+ (Neg); Ketones, Urine Neg (Neg); Leukocyte Esterase, Urine 1+ (Neg); Nitrite, Urine Neg (Neg); Protein, Urine 3+ (Neg); Urobilinogen, Urine NORM (Normal)
[2022-01-20 00:58] LABS: Color, Urine Yellow (P-Yellow)
[2022-01-20 01:00] LABS: Appearance, Urine Hazy (Clear)
--- NOTE | 2022-01-20 01:00 | NUR ---
PATIENT ADMITTED TO THE UNIT POST CARDIAC ARREST INTUBATED. RT PLACED ON AC/VC VENT SETTINGS 20/550/8/70%. ETT TUBE 11/21. SATS >95%. UNRESPONSIVE, PUPILS NON-REPSONSIVE TO LIGHT, NO GAG, SWALLOW, OR COUGH NOTED. NO PURPOSEFUL MOVEMENT. NO SEDATION DURING INTUBATION AND IS STILL OFF SEDATION. NO RESPONSE TO PAIN. LS VERY COARSE CRACKLES T/O, BLOODY SECRETIONS SUCTIONED FROM ETT. ABD DISTENDED ROUND, FIRM. TEMP AMIN IN PLACE SCANT URINE IN TUBING. VERY RED INFLAMMED CELLULTITIS TO BLE, SEE PICS IN CHART, AND CHART NOTE. HR SINUS IN THE 90'S. HIGH QTC'S, EELVATED TROPONIN. LEVO INFUSING INTO PERIPHERIAL LINE IN LEFT UPPER ARM, FLUSHED, CONCERNS BROUGHT TO GRAVITY METER OPERATOR ATTENTION. CALLED MD FOR CENTRAL LINE PLACEMENT. COCCYX PRESSURE ULCER NOTED, PICS TAKEN AND CHARGED. NGT PLACED TO LIS RED COFFEE GROUNDS NOTED.
[2022-01-20 01:01] LABS: Amorphous Light (0-Heavy); Bacteria Few /hpf; Mucus Light (0-Heavy); Squamous Epithelial Cells Rare /hpf (Few); White Blood Cells, Urine 25-50 /hpf (0-5)
--- NOTE | 2022-01-20 02:00 | NUR ---
DR. FLORES PLACED CENTRAL LINE TO LEFT FEMORAL AREA. COOLING PROCESS STARTED. TEMP AT 97.1. IV IN LEFT UPPER ARM INFILTRATED WITH LEVO INFUSING. NOTED SMALL AMOUNTS OF SWELLING TO AREA. CHRISTA FERNANDEZCHEMICAL DEPENDENCY NURSE INFORMED. INFORMED MARK OF INCREASE IN QTC. 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 ASKED DR. FLORES IF HE STILL WANTS LOVENOX GIVEN, HE SAID YES. LOVENOX GIVEN. RETAL TEMP PROP PLACED.
[2022-01-20 05:45] LABS: BASOPHILS ABSOLUTE AUTO 0.05 K/mm3 (0.00-0.23); BASOPHILS PERCENT AUTO 0 % (0-2); EOSINOPHILS ABSOLUTE AUTO 0.06 K/mm3 (0.00-0.68); EOSINOPHILS PERCENT AUTO 0 % (0-6); Hemoglobin 11.7 g/dL (13.5-17.5); IMMATURE GRAN ABSOLUTE AUTO 0.49 K/mm3 (0.00-0.10); IMMATURE GRAN PERCENT AUTO 3 % (0-1); LYMPHOCYTES ABSOLUTE AUTO 0.88 K/mm3 (0.84-5.20); LYMPHOCYTES PERCENT AUTO 5 % (21-46); MONOCYTES ABSOLUTE AUTO 0.65 K/mm3 (0.16-1.47); MONOCYTES PERCENT AUTO 4 % (4-13); Mean Corpuscular HGB 26.2 pg (26.0-34.0); Mean Corpuscular HGB Conc 30.8 g/dL (31.5-36.5); Mean Corpuscular Volume 85 fL (80-100); Mean Platelet Volume 9.3 fL (9.1-12.4); NEUTROPHILS ABSOLUTE AUTO 15.05 K/mm3 (1.96-9.15); NEUTROPHILS PERCENT AUTO 88 % (41-73); Platelet Count 107 K/mm3 (150-400); RDW Coefficient Variation 15.2 % (11.7-14.2); RDW Standard Deviation 47.1 fL (35.1-46.3); Red Blood Cell Count 4.47 M/mm3 (4.30-5.90); White Blood Cell Count 17.18 K/mm3 (4.00-11.30)
[2022-01-20 06:32] LABS: Albumin, Blood 2.3 g/dL (3.4-5.0); Albumin/Globulin Ratio 0.4 (0.8-1.8); Bilirubin, Total 0.9 mg/dL (0.1-1.0); Creatinine, Blood 2.31 mg/dL (0.60-1.20); Globulin, Blood 5.2 g/dL (2.2-4.0); Potassium, Blood 3.9 mmol/L (3.5-5.5); Total Protein, Blood 7.5 g/dL (6.4-8.2)
--- NOTE | 2022-01-20 06:37 | NUR ---
SHIFT SUMMARY: NON-RESPONSIVE, NOT ON SEDATION. WILL OPEN EYES SPONTANOUS, NO EYE MOVEMENT, SCLERA EDEMA WITH REDNESS, VERY SLUGGISH PUPILS, NO TRACKING, OCCATIONALLY WILL HAVE TREMORS ALL OVER BODY. DR. FLORES THINKS THEY MIGHT BE SEIZURES OR A NEUROLOGIAL EFFECT FROM BEING CARDIAC ARREST FOR SO LONG. NO MOVMENTS OF EXTREMITITES. OCCATIONALLY WILL HAVE VERY SMALL MOVEMENT TO PAIN. AC/VC VENT SETTINGS REMAIN AT 20/550/8/70%, PINK TINGED SECRETIONS SUCTIONED FROM ETT. COARSE CRACKLES T/O. SATS REMAIN >95%. SINUS WITH PVC'S, HIGH QTC 550-600, MD AWARE. LEVO PLACED ON SB AROUND 0345, BP HOLDING. CENTRAL LINE/COOLING CATH PLACED TO LEFT FEMORAL, IVF INFUSING AT 100ML/HR AND TKO. AMIN YELLOW SCANT AMOUNT OF URINE, ONLY 50CC IN TUBE. CELLULITITS TO BLE, WEEPING, CRUSTING, OPEN TO AIR WITH WHITE AIR CHUCKS UNDER. COCCYX WITH DRESSING IN PLACE FOR STAGE 2 COCCYX. CLEANSED SMEARS TO BOTTOM. ELEVATED TROPONIN AT 153, LACTIC DOWN TO 9.5, WBC 23.11, POSITIVE TOX SCREEN. OG TO LIS HAS 200 OUT OF BLOOD COFFEE GROUNDS. STERNUM HAS ABRASION FROM CPR. PICS ARE ALL IN CHART. WILL REPORT TO DAYSHIFT.
[2022-01-20 09:15] LABS: Bun/Creatinine Ratio 12.1 (12.0-20.0); Calcium, Blood 8.8 mg/dL (8.5-10.1); Creatinine, Blood 2.57 mg/dL (0.60-1.20); Phosphorus, Blood 5.1 mg/dL (2.5-4.9)
[2022-01-20 10:11] LABS: Creatine Kinase MB 33.9 ng/mL (0.0-3.6); Creatine Kinase MB Index 3.6 (0.0-4.0)
--- NOTE | 2022-01-20 10:36 | NUR ---
Ethics consult order received and processed. Medical notes, prognostic indicators, and family matrix reviewed. If the principal is in a clinically non-recoverbale condition, and further intenventions would be medically non-beneficial, disproportionate, or beyond a reasonable standard of care, then proceeding with de-escalation and comfort measures would be the most ethically appropriate and medically suitable option. It is reported that a good colleen effort has been made to establish communication with family, but without positive result. In such situations, per ORS 127.635, it is legally licit to default to the significant other for proxy decision making support, especially in the absence of a viable advance care planning instrument. This being said, in alignment with hospital policy, two providers need to attest on record that the principal satisfies the terminal threshold prior to extubation. Thank you for this consult. Emre Land ThD, BAKARI consent.
--- NOTE | 2022-01-20 10:43 | NUR ---
Case Conference Note Spoke with vidhi and discussed case. Pt's prognosis is poor and SO coming in to potentially make decision to withdrawel care. THEA's daughter Lucina is main contact and she will relay info to SO. The importance of determining offical decision maker was discussed. Called Lucina who reports she and SO other are heading to the hospital now. Lucina does confirm Pt has sibblings and children but have been estranged for more than 15 years with no contact information available. Placed Ethics consult and discussed case with Ethics chair Emre Land. Emre confirms decision maker will be SO although they are not . Please see ethics note for further information. Palliative Care will F/U for therapeutic visit for family.
--- NOTE | 2022-01-20 12:03 | NUR ---
FAMILY AT BEDSIDE REGULATORY ADMINISTRATOR, RN, PALLIATIVE CARE, SPIRITUAL CARE PRESENT. FAMILY UNDERSTANDS POOR PROGNOSIS AND WOULD LIKE TO PROCEED WITH COMFORT CARE INCLUDING EXTUBATION. HOSPITALIST NOTIFED, SHE WILL EVALUATE NEUROLOGICAL STATUS INDEPENDENTLY FROM REGULATORY ADMINISTRATOR BEFORE PROCEEDING. FAMILY CURRENTLY IN ICU WAITING ROOM. LIFE PARTNER DOES NOT WISH TO BE PRESENT IN ROOM, PARTNER'S DAUGHTER WISHES TO BE WITH PT AFTER EXTUBATION. RN TO CONTINUE TO MONITOR.
--- NOTE | 2022-01-20 14:30 | NUR ---
Spiritual Care visit - extubation Contacted by Palliative care to be present for intubation. SO's daughter is present. Staff does the extubation and once staff has made the Pt. comfortable, a blessing for the Pt. is given. Pt. displays evidence of lingering. Establish rapport with the daughter. Family has requested [facility] of [facility] for services. The SO's daughter requested to be the contact for the home. Will remain avilable to the family.
--- NOTE | 2022-01-20 15:40 | NUR ---
Multiple visits today. Pt has poor prognosis with SO and SO's daughter electing to withdraw care and place Pt on comfort care. SO Cass chooses to not be present at time Pt is placed on comfort care. SO daughter Lucina at bedside when orders placed. Offered supportive visit and answered questions. Placed comfort care order and comfort care order set Per V/O from Dr Escobar. Pt appears comfortable at time visit ended. Palliative Care will remain available.
--- NOTE | 2022-01-20 15:42 | NUR ---
TIME OF 1525 PT EXTUBATED AT 1333, SO'S DAUGHTER INTO ROOM IMMEDIATELY AFTER. SO CHOOSES NOT TO BE PRESENT. PALLIATIVE CARE RN, SPIRITUAL CARE, RN AND RT AT BEDSIDE. MEDICATED FOR PAIN AND ANXIETY PRIOR TO EXTUBATION. FAMILY MEMBER AT BEDSIDE UNTIL PT PASSED. 2 RN'S ASSESSED VERIFIED ABSENCE OF HEART TONES, RESPIRATIONS. MD NOTIFIED. VERIFIED WITH FAMILY THAT PT DOES NOT HAVE ANY BELONGINGS WITH HIM. [facility] [facility] [place] [place]
== END 2022-01-20 15:25 | DRG 308 ==
LOC: ER 22:02 → ICUE 01-20 00:23 → ICUW 01-20 00:23 → ICUE 01-20 00:50
PROVIDERS: Student in an Organized Health Care Education/Training Program; ADMIT Internal Medicine
PROC: 0BH17EZ Insertion of Endotracheal Airway into Trachea, Via Natural or Artificial Opening (ICD-10-PCS; principal; 2022-01-20)
PROC: 3E03329 Introduction of Other Anti-infective into Peripheral Vein, Percutaneous Approach (ICD-10-PCS; 2022-01-20)
PROC: 3E033XZ Introduction of Vasopressor into Peripheral Vein, Percutaneous Approach (ICD-10-PCS; 2022-01-20)
PROC: 5A1935Z Respiratory Ventilation, Less than 24 Consecutive Hours (ICD-10-PCS; 2022-01-20)
PROC: 05HY33Z Insertion of Infusion Device into Upper Vein, Percutaneous Approach (ICD-10-PCS; 2022-01-20)
DX: I49.01 Ventricular fibrillation (principal); A41.9 Sepsis, unspecified organism; J18.9 Pneumonia, unspecified organism; N17.0 Acute kidney failure with tubular necrosis; R65.21 Severe sepsis with septic shock; J96.01 Acute respiratory failure with hypoxia; I50.23 Acute on chronic systolic (congestive) heart failure; L03.115 Cellulitis of right lower limb; L03.116 Cellulitis of left lower limb; Z20.822 Contact with and (suspected) exposure to COVID-19; R74.01 Elevation of levels of liver transaminase levels; E78.5 Hyperlipidemia, unspecified; L98.499 Non-pressure chronic ulcer of skin of other sites with unspecified severity; I46.2 Cardiac arrest due to underlying cardiac condition; I87.2 Venous insufficiency (chronic) (peripheral); F15.10 Other stimulant abuse, uncomplicated; R34 Anuria and oliguria; Z51.5 Encounter for palliative care; Z91.14 Patient's other noncompliance with medication regimen; I25.2 Old myocardial infarction; Z86.711 Personal history of pulmonary embolism; Z79.01 Long term (current) use of anticoagulants; Z79.899 Other long term (current) drug therapy
CPT/HCPCS: 0241U; 31500; 36415; 36556; 36600; 51702; 70450; 71045; 71260; 80048; 80053; 81001; 82330; 82550; 82553; 82803; 82947; 83605; 83735; 83880; 84100; 84443; 84484; 85025; 85379; 85610; 87077; 87086; 87186; 93005; 93010; 93308; 93321; 94002; 94003; 94640; A9270; J0282; J1650; J2060; J2250; J2270; J2543; J2760; J2930; J3370; J7030; J7040; J7050; J7060; Q9967